=== PATIENT | male | born 1965 | race Two or more races ===

== ENCOUNTER 2020-09-11 09:22 | Inpatient (IN) | payer SELFPAY ==
[~2020-09-11] VITALS: Ht 162.6 cm; Wt 81.6 kg
--- NOTE | 2020-09-11 09:40 | NUR ---
ED Nurse Note: No available isolation room at this time. Charge nurse notified.
[2020-09-11] MEDS ORDERED: Azithromycin 500 MG in NS 275 ML IVPB ONE (10:00)
[2020-09-11] MEDS ORDERED: cefTRIAXone 1 GM in NS 55 ML IVPB ONE (10:00)
[2020-09-11] MEDS ORDERED: Acetaminophen 500mg (ES) tab ORAL ONE ×2 (10:00→13:00)
[2020-09-11] MEDS ORDERED: dexAMETHasone 10mg/ml Inj IV ONE (10:00)
[2020-09-11] MEDS ORDERED: NS 55 ML IV ONE (11:01)
--- NOTE | 2020-09-11 11:35 | NUR ---
ED Nurse Note: pt placed in isolation and meds given as noted. pt relates he feels short of breath with body aches. tachypnea noted. pt tolerates iv start and lab draw well. swabs sent as ordered. pt able to speak full sentences well skin hot and flushed to touch.
[2020-09-11 11:51] LABS: BASOPHILS % (AUTO) 0.5 % (0.0-2.0); HEMATOCRIT 43.3 % (42.0-52.0); HEMOGLOBIN 14.3 G/DL (14.2-18.0); LYMPHOCYTES % (AUTO) 13.1 % (20.0-45.0); MEAN CORPUSCULAR VOLUME 98 FL (80-99); MONOCYTES % (AUTO) 4.5 % (1.0-10.0); NEUTROPHILS % (AUTO) 81.9 % (45.0-75.0); PLATELET COUNT 199 K/UL (150-450); RED BLOOD COUNT 4.41 M/UL (4.70-6.10); RED CELL DISTRIBUTION WIDTH 10.7 % (11.6-14.8); WHITE BLOOD COUNT 6.4 K/UL (4.8-10.8)
[2020-09-11 12:07] LABS: ANION GAP 7 mmol/L (5-15); BLOOD UREA NITROGEN 15 mg/dL (7-18); CALCIUM 8.9 MG/DL (8.5-10.1); CARBON DIOXIDE 27 MMOL/L (21-32); CHLORIDE 100 MMOL/L (98-107); CREATININE 1.4 MG/DL (0.55-1.30); POTASSIUM 4.4 MMOL/L (3.5-5.1); SODIUM 134 MMOL/L (136-145)
--- NOTE | 2020-09-11 12:18 | Emergency Room Report ---
History of Present Illness General Chief Complaint: Upper Respiratory Illness Source: Patient Present Illness HPI 54-year-old male presents with cough and fever x5 days. Also endorses fatigue, nausea, and nonspecific abdominal discomfort Denies chest pain, hemoptysis, melena, hematochezia, hematuria, dysuria or other symptoms Is unsure of Covid exposures The patient's symptoms were gradual onset, severity was moderate, duration since 5 days. Quality: Dry cough Past medical history: Denies Past surgical history: Denies Smoking: Denies Alcohol use: Denies Drug use: Denies Review of systems: CONST: ++ fevers ++ chills, No night sweats PULMONARY: No productive cough, No shortness of breath CARDIAC: No chest pain, No palpitations GI: No vomiting, No diarrhea , No melena_or_BRBPR : No dysuria, No hematuria, No discharge NEURO: No new_focal_weakness_or_numbness, No confusion, No vision changes 14 point Review of Systems is otherwise negative except per HPI Physical Exam: GENERAL: Awake_alert_ nontoxic, no acute distress Spo2 88% on RA -normal. Febrile. Tachycardic EYES: Extraocular muscles are intact. Conjunctivae clear. Lids without swelling ENT: External nose and ear normal_in_appearance. Oropharynx clear. Head_atraumatic, Moist_oral_mucosa NECK: No JVD. No meningismus. No thyromegaly. Supple. Trachea midline RESP: Increased work of breathing. Symmetric rise. No stridor. Distant breath sounds bilaterally CARDIAC: Tachycardic and regular rhytm. No_significant pedal edema. ABDOMEN: Soft. Nondistended. Nontender_No_rebound_or_guarding. MSK: Normal muscle tone, without rigidity. Extremities without asymmetric deformity or swelling. SKIN: Warm and dry. No visible cyanosis or pallor NEUROLOGIC: Alert, oriented x3. Motor_and_sensation_grossly_intact. No truncal ataxia. Gait_normal Psych: Normal mood and affect, normal judgment and insight - COORDINATION OF CARE Case was discussed with: Patient , Patient's Physician Any labs and imaging that were ordered were interpreted as part of the medical decision making: Medical Decision Making/Plan: Differential includes COVID, pneumonia, bronchitis, CHF, pulmonary edema, pulmonary embolism, pleural effusion among others. Patient was initially febrile and tachycardic but well appearing. Patient declined sepsis NS 30cc/kg bolus given dx of COVID. CXR shows multifocal pneumonia seems to be consistent with pneumonia, rather than CHF. Labs show MERNA, dehydration, lipase is mildly elevated at 536. Abdominal exam is non tender. Doubt pseudocyst or gangrenous pancreatitis. Patient given Ceftriaxone / Azithromycin/Decadron. ++NS IVFs. Tylenol given for fever Symptoms are not likely to be pulmonary embolism, patient no significant PE risk factors, and has more likely alternate cause of symptoms. - CRITICAL CARE TIME - I spent 35 minutes of critical care time. This time excludes any separately billable procedures. Organ systems at risk include: Pulmonary / respiratory Treatments/Evaluations: Emergent and rapid respiratory assessment and management with continuous monitoring. Advanced airway equipment at the ready, while the patient's respiratory symptoms were stabilized. Given the patients presentation with pneumonia with hypoxic respiratory failure, there existed the potential for imminent deterioration in the patient's condition due to respiratory compromise. Organ systems at risk for failure without immediate intervention include pulmonary / respiratory. This time was spent reviewing the patients records, reviewing vital signs, reassessing the patients clinical status, discussing the case and care with staff and consultants, and performing high-complexity medical decision making. I considered the possibility of Bipap vs intubation , but at this time the patient is protecting their airway and maintaining their saturation on supplemental oxygen so will defer intubation at this time, although they will be closely monitored for any further deterioration. Allergies: Coded Allergies: No Known Allergies (Unverified , 09/11/20) COVID-19 Screening Contact w/high risk pt: No Experienced COVID-19 symptoms?: Yes COVID-19 Testing performed CHARACTER ARTIST: No Nursing Documentation-[facility] Past Medical History: No Stated History Physical Exam Vital Signs Date Time Temp Pulse Resp B/P (MAP) Pulse Ox O2 Delivery O2 Flow Rate FiO2 09/11/20 09:29 102.7 93 20 116/75 (89) 91 Room Air Sp02 EP Interpretation: reviewed, abnormal Medical Decision Making Diagnostic Impression: Primary Impression: COVID-19 Additional Impressions: MERNA (acute kidney injury) Hypoxemia Pancreatitis EKG Diagnostic Results PA Scribe Text 12-lead EKG (interpreted by me) Time: 1126 Indication: Rhythm analysis Tracing visualized and Interpreted by me. Rhythm: Normal sinus rhythm Rate: 81 bpm QTc: 439 Morphology: No_significant_ST_elevations_or_depressions, No STEMI Impression: Normal_sinus_rhythm_without_significant_abnormality Rhythm Strip Diag. Results Rhythm Strip Time: 12:59 EP Interpretation: yes Rate: 100 Rhythm: no PVC's, no ectopy Chest X-Ray Diagnostic Results Chest X-Ray Diagnostic Results : RUBI Scribsheri Text Chest X-Ray: Views: [ 1 ] view(s) Indication: Cough Findings: Normal heart size. Mediastinum normal. Multifocal pneumonia Impression: Multifocal pneumonia The X-ray(s) were independently viewed and interpreted contemporaneously Electronically signed by Wanda griffiths DO Reevaluation Time: 12:59 Last Vital Signs Date Time Temp Pulse Resp B/P (MAP) Pulse Ox O2 Delivery O2 Flow Rate FiO2 09/11/20 09:29 102.7 93 20 116/75 (89) 91 Room Air Status: improved Disposition: ADMITTED INPATIENT Admit Decision Time: 12:59 Condition: Stable Wanda Pugh D.O. Sep 11, 2020 12:18
[2020-09-11 12:20] LABS: ALANINE AMINOTRANSFERASE 65 U/L (12-78); ALBUMIN 3.2 G/DL (3.4-5.0); ALBUMIN/GLOBULIN RATIO 0.7 (1.0-2.7); ALKALINE PHOSPHATASE 89 U/L (46-116); ASPARTATE AMINO TRANSFERASE 90 U/L (15-37); BILIRUBIN,TOTAL 0.9 MG/DL (0.2-1.0); CREATINE KINASE 201 U/L (26-308); FERRITIN > 2000 NG/ML (8-388); LACTATE DEHYDROGENASE 441 U/L (81-234)
[2020-09-11 12:35] VITALS: BP 128/78
--- NOTE | 2020-09-11 13:35 | NUR ---
ED Nurse Note: pt doing well with stable vs on 2 L NC O2. no increased distress and resting comfortably. awaiting admission approval and room assignment.
--- NOTE | 2020-09-11 16:19 | NUR ---
ED Nurse Note: pt denies worsened symtpoms and resting well in room vss. awaiting room.
--- NOTE | 2020-09-11 16:20 | Diagnostic Imaging Report ---
Indication: Cough Technique: One view of the chest Comparison: none Findings: There are bilateral mostly peripheral streaky and patchy infiltrates in a peribronchovascular distribution. The heart size is normal. The pleural spaces are clear Impression: Bilateral infiltrates, consistent with multifocal pneumonia, likely viral
--- NOTE | 2020-09-11 17:05 | Cardiac Electrophysiology PN ---
Subjective Subjective [id number] Objective Last 24 Hour Vital Signs Date Time Temp Pulse Resp B/P (MAP) Pulse Ox O2 Delivery O2 Flow Rate FiO2 09/11/20 12:35 101.3 09/11/20 12:35 101.3 76 18 128/78 99 Nasal Cannula 2.0 09/11/20 12:30 93 20 Room Air 09/11/20 09:29 102.7 93 20 116/75 (89) 91 Room Air Laboratory Tests Test 09/11/20 09:54 09/11/20 11:00 Arterial Blood pH 7.480 (7.350-7.450) Arterial Blood Partial Pressure CO2 30.6 mmHg (35.0-45.0) L Arterial Blood Partial Pressure O2 60.1 mmHg (75.0-100.0) L Arterial Blood HCO3 22.3 mmol/L (22.0-26.0) Arterial Blood Oxygen Saturation 91.8 % (95-100) L Arterial Blood Base Excess -0.3 (-2-2) Juan Francisco Test Positive White Blood Count 6.4 K/UL (4.8-10.8) Red Blood Count 4.41 M/UL (4.70-6.10) L Hemoglobin 14.3 G/DL (14.2-18.0) Hematocrit 43.3 % (42.0-52.0) Mean Corpuscular Volume 98 FL (80-99) Mean Corpuscular Hemoglobin 32.4 PG (27.0-31.0) H Mean Corpuscular Hemoglobin Concent 33.0 G/DL (32.0-36.0) Red Cell Distribution Width 10.7 % (11.6-14.8) L Platelet Count 199 K/UL (150-450) Mean Platelet Volume 6.0 FL (6.5-10.1) L Neutrophils (%) (Auto) 81.9 % (45.0-75.0) H Lymphocytes (%) (Auto) 13.1 % (20.0-45.0) L Monocytes (%) (Auto) 4.5 % (1.0-10.0) Eosinophils (%) (Auto) 0.0 % (0.0-3.0) Basophils (%) (Auto) 0.5 % (0.0-2.0) Prothrombin Time 11.4 SEC (9.30-11.50) Prothromb Time International Ratio 1.0 (0.9-1.1) Activated Partial Thromboplast Time 28 SEC (23-33) Sodium Level 134 MMOL/L (136-145) L Potassium Level 4.4 MMOL/L (3.5-5.1) Chloride Level 100 MMOL/L (98-107) Carbon Dioxide Level 27 MMOL/L (21-32) Anion Gap 7 mmol/L (5-15) Blood Urea Nitrogen 15 mg/dL (7-18) Creatinine 1.4 MG/DL (0.55-1.30) H Estimat Glomerular Filtration Rate 53.0 mL/min (>60) Glucose Level 161 MG/DL (74-106) H Lactic Acid Level 1.40 mmol/L (0.4-2.0) Calcium Level 8.9 MG/DL (8.5-10.1) Ferritin > 2000 NG/ML (8-388) H Total Bilirubin 0.9 MG/DL (0.2-1.0) Aspartate Amino Transf (AST/SGOT) 90 U/L (15-37) H Alanine Aminotransferase (ALT/SGPT) 65 U/L (12-78) Alkaline Phosphatase 89 U/L (46-116) Lactate Dehydrogenase 441 U/L (81-234) H Total Creatine Kinase 201 U/L (26-308) Troponin I 0.000 ng/mL (0.000-0.056) C-Reactive Protein, Quantitative Pending Pro-B-Type Natriuretic Peptide 64 pg/mL (0-125) Total Protein 7.8 G/DL (6.4-8.2) Albumin 3.2 G/DL (3.4-5.0) L Globulin 4.6 g/dL Albumin/Globulin Ratio 0.7 (1.0-2.7) L Lipase 536 U/L (73-393) H Microbiology Date/Time Source Procedure Growth Status 09/11/20 11:15 Nasopharynx SARS-CoV-2 RdRp Gene Assay - Final Complete 09/11/20 11:00 Nasal Nares Left - Final Complete 09/11/20 11:00 Nasal Nares Left - Final Complete Thiago Villafana MD Sep 11, 2020 17:05
[2020-09-11 17:14] VITALS: BP 125/75
--- NOTE | 2020-09-11 17:14 | NUR ---
ED Nurse Note: dr gorman here to eval pt.pt without increased dyspnea. vss.
--- NOTE | 2020-09-11 17:45 | Consultation ---
DATE OF CONSULTATION: 09/11/2020 PULMONARY CONSULTATION HISTORY OF PRESENT ILLNESS: This is a 54-year-old male who came to the emergency room with cough and fever for the last 5 days. The patient denies any chest pain or hemoptysis. He is unsure about COVID exposures. He states he has been coughing and unwell for the last 5 days. PAST MEDICAL HISTORY: None. SURGERIES: None. SOCIAL HISTORY: No alcohol or tobacco usage. ALLERGIES: None reported. REVIEW OF SYSTEMS: Denies any headaches, hematemesis, melena, hematochezia, night sweats, or weight loss. PHYSICAL EXAMINATION: GENERAL: A 54-year-old male. HEENT: Unremarkable. CHEST: Clear breath sounds bilaterally. ABDOMEN: Soft. EXTREMITIES: There is no edema. NEUROLOGIC: Nonfocal. VITAL SIGNS: Blood pressure 120/70, heart rate 74, respirations 20, O2 sat oxygen, T-max 101.3. LABORATORY DATA: His COVID testing was positive by nasopharyngeal swab. X-ray chest was obtained, which shows bilateral patchy infiltrates. IMPRESSION: 1. COVID-19 pneumonia. 2. Hypoxemia. DISCUSSION: Admit to the hospital. We will start Decadron. We will start Lovenox. Provide oxygen. Defer to ID for remdesivir. We will follow carefully. Artur Johansen M.D. DR: ALEA JOB#: [id number] CC:
[2020-09-11 19:30] VITALS: BP 124/76
--- NOTE | 2020-09-11 19:44 | NUR ---
ED Nurse Note: Recived report from Deysi GARRISON
--- NOTE | 2020-09-11 20:15 | NUR ---
ED Nurse Note: Pt is resting comfortably talking to his family on the phone, ok'd to eat by ER MD, gave him a sandwhich, sent off urine to lab, Pt SPO2 99% on 2L NC, changed O2 tank. breathing is even and unlabored
--- NOTE | 2020-09-11 20:15 | Consultation ---
DATE OF CONSULTATION: 09/11/2020 CARDIOLOGY CONSULTATION CONSULTING PHYSICIAN: Thiago Villafana M.D. REFERRING PHYSICIAN: . REASON FOR CONSULTATION: Increasing shortness of breath in the patient with history of hypertension. HISTORY OF PRESENT ILLNESS: The patient is a 54-year-old gentleman with a history of hypertension, presented to the emergency room with cough and fever of 5 days duration. The patient also has abdominal discomfort and nausea and generalized fatigue. The patient did not have any chest pain and is not sure of COVID exposure. The patient was evaluated in the emergency room and his COVID was positive. Per my evaluation, the patient is still in the emergency room and requiring supplemental oxygen. REVIEW OF SYSTEMS: Negative other than what is mentioned in the history of present illness. PAST MEDICAL HISTORY: As mentioned above. FAMILY HISTORY: Noncontributory. SOCIAL HISTORY: He lives at home. Does not smoke or drink alcohol. PHYSICAL EXAMINATION: VITAL SIGNS: Show blood pressure of 128/78, pulse is 76, respirations 18, temperature is 102.7. HEAD AND NECK: Showed no JVD. LUNGS: Coarse rhonchi. CARDIOVASCULAR: Shows regular S1 and S2 with no gallop. ABDOMEN: Soft. EXTREMITIES: No pitting edema. LABORATORY DATA: Labs show white count of 6.4, hemoglobin of 14.7, hematocrit 43.3, and platelet count of 199. Sodium 134, potassium 4.4, BUN of 15, creatinine 1.4, and glucose of 161. First troponin is negative. LDH is 441. Albumin is 3.2, and BNP is 64. ASSESSMENT AND PLAN: 1. Shortness of breath. His BNP is within normal range and is most likely due to the patient's active COVID pneumonia especially in view of his fever of 102 and . We will get an echocardiogram and repeat cardiac enzymes as the patient is at risk for developing COVID myocarditis. 2. History of hypertension. Blood pressure currently is stable. 3. Mild renal failure with creatinine of 1.4. 4. Pancreatitis. Lipase elevated at 536. Lipase will be repeated in the morning. We will also check urine toxicology screen. Thank you very much for allowing me to participate in the care of this patient. Please do not hesitate to contact me for any questions regarding my evaluation. Thiago Villafana M.D. DR: AIDE JOB#: [id number] CC:
[2020-09-11 21:15] LABS: APPEARANCE,URINE CLEAR; BILIRUBIN, URINE NEGATIVE (NEGATIVE); GLUCOSE, URINE (UA) 3+ (NEGATIVE); KETONES,URINE 1+ (NEGATIVE); LEUKOCYTE ESTERASE ,URINE NEGATIVE (NEGATIVE); NITRITE,URINE NEGATIVE (NEGATIVE); PH,URINE 7 (4.5-8.0); PROTEIN,URINE 1+ (NEGATIVE); UROBILINOGEN,URINE 1 MG/DL (0.0-1.0)
[2020-09-11 21:29] LABS: COLOR,URINE YELLOW
--- NOTE | 2020-09-11 21:32 | NUR ---
ED Nurse Note: Gave report to Susanne RN
--- NOTE | 2020-09-11 21:49 | NUR ---
TRANSFER TO FLOOR: Patient transferred to as ordered, per ER MED. Report given to Susanne RN. Belongings and medications sent with Pt. Vitals table as documented. Pt is resting comfortably, breathing is even and unlabored. Addendum: 09/11/20 at 2151 by TDANCEY Room [facility]-
[2020-09-12] VITALS: BP 148/84
[2020-09-12] MEDS ORDERED: Albuterol 90mcg Inhaler 8gm INH SCH
--- NOTE | 2020-09-12 | NUR ---
NURSE NOTES: Patient was safely transferred from ER to via gurney, accompanied by transport. Belonging reviewed and signed with patient. Oriented patient to unit. Patient is awake, alert x4, on NC 2L, no acute distress noted. Denies pain. Skin assessment done. PIV intact and patent. Called and notified Dr. Wright of admission, received orders. Bed is locked and low, bed alarms active, side rails up x2 and call light is within reach. Will continue to monitor.
[2020-09-12 04:00] VITALS: BP 145/85
--- NOTE | 2020-09-12 06:16 | NUR ---
NURSE HAND-OFF: Important Events on Shift: Admission, patient stable on NC 2L, saturating at 96% Patient Status: Stable Diet: Regular Pending Orders: N.A Pending Results/Labs: CBC, CMP, MAG, PHOS Pending MD notification: N.A Latest Vital Signs: Temperature 98.1 , Pulse 60 , B/P 145 /85 , Respiratory Rate 16 , O2 SAT 97 , Nasal Cannula, O2 Flow Rate 2.0 . Vital Sign Comment: Stable Latest Lynne Fall Score: 20 Fall Risk: Low Risk Safety Measures: Call light Within Reach, Bed Alarm Zone 1, Side Rails Side Rails x2, Bed position Low and Locked. Fall Precautions: Patient Fall Education
[2020-09-12 06:43] LABS: BASOPHILS % (AUTO) 0.5 % (0.0-2.0); HEMATOCRIT 37.7 % (42.0-52.0); HEMOGLOBIN 13.4 G/DL (14.2-18.0); LYMPHOCYTES % (AUTO) 15.4 % (20.0-45.0); MEAN CORPUSCULAR VOLUME 94 FL (80-99); PLATELET COUNT 224 K/UL (150-450); RED BLOOD COUNT 4.03 M/UL (4.70-6.10); RED CELL DISTRIBUTION WIDTH 11.3 % (11.6-14.8); WHITE BLOOD COUNT 5.3 K/UL (4.8-10.8)
--- NOTE | 2020-09-12 07:15 | NUR ---
NURSE NOTES: Report received from Susanne RN, rounds made. Patient resting in semi-fowlers position in bed. AOx4 calm, on O2 2LNC, no SOB noted, has dry, light cough. LFA saline lock, intact, patent. Call light in reach, bed in lowest position,will continue to monitor.
--- NOTE | 2020-09-12 07:32 | NUR ---
HAND-OFF: Report given to BLADIMIR Harvey.
[2020-09-12 07:37] LABS: ALANINE AMINOTRANSFERASE 80 U/L (12-78); ALBUMIN 2.7 G/DL (3.4-5.0); ALBUMIN/GLOBULIN RATIO 0.6 (1.0-2.7); ALKALINE PHOSPHATASE 82 U/L (46-116); ANION GAP 8 mmol/L (5-15); ASPARTATE AMINO TRANSFERASE 75 U/L (15-37); BILIRUBIN,TOTAL 0.5 MG/DL (0.2-1.0); BLOOD UREA NITROGEN 21 mg/dL (7-18); CALCIUM 8.8 MG/DL (8.5-10.1); CARBON DIOXIDE 26 MMOL/L (21-32); CHLORIDE 104 MMOL/L (98-107); POTASSIUM 4.2 MMOL/L (3.5-5.1); SODIUM 137 MMOL/L (136-145)
[2020-09-12 07:51] LABS: PHOSPHORUS 2.4 MG/DL (2.5-4.9)
[2020-09-12 08:00] VITALS: BP 127/78
[2020-09-12] MEDS: Albuterol 90mcg Inhaler 8gm INH SCH ×4 (08:00→20:59)
--- NOTE | 2020-09-12 08:40 | History & Physical ---
History of Present Illness General Reason for Hospitalization: Upper Respiratory Illness Present Illness HPI 54-year-old male presents with cough and fever x5 days. Also endorses fatigue, nausea, and nonspecific abdominal discomfort Denies chest pain, hemoptysis, melena, hematochezia, hematuria, dysuria or other symptoms Is unsure of Covid exposures The patient's symptoms were gradual onset, severity was moderate, duration since 5 days. Quality: Dry cough Allergies: Coded Allergies: No Known Allergies (Unverified , 09/11/20) COVID-19 Screening Contact w/high risk pt: No Experienced COVID-19 symptoms?: Yes Coronavirus symptoms experienc: Fever (T>100.4F or >38C), Chills, Fatigue, Shortness of Breath, Cough Patient History Healthcare decision maker Resuscitation status Advanced Directive on File Review of Systems Review of Symptoms General ROS: no weight loss or fever Psychological ROS: no depression or mood changes, no memory loss Ophthalmic ROS: no visual changes or eye irritation ENT ROS: no nasal congestion, hearing loss, dizziness Allergy and Immunology ROS: no allergic symptoms or urticaria Hematological and Lymphatic ROS: no swollen glands, unusual bleeding or bruising Endocrine ROS: no polyuria, polydipsia, weight changes, temperature intolerance Respiratory ROS: no cough, shortness of breath, or wheezing Cardiovascular ROS: no chest pain or dyspnea on exertion Gastrointestinal ROS: denies abdominal pain, bright red blood in stool. Musculoskeletal ROS: no myalgias or arthralgias Neurological ROS: no TIA or stroke symptoms Dermatological ROS: no new or changing skin lesions, rashes or pruritis Physical Exam Physical Exam General appearance: alert, cooperative, no distress, appears stated age Head: Normocephalic, without obvious abnormality, atraumatic Eyes: conjunctivae/corneas clear. PERRL, EOM's intact. Fundi benign Throat: Lips, mucosa, and tongue normal. Teeth and gums normal Neck: supple, symmetrical, trachea midline, no adenopathy, thyroid: not enlarged, symmetric, no tenderness/mass/nodules, no carotid bruit and no JVD Lungs: clear to auscultation bilaterally Heart: regular rate and rhythm, S1, S2 normal, no murmur, click, rub or gallop Abdomen: soft, non-tender. Bowel sounds normal. No masses, no organomegaly Extremities: extremities normal, atraumatic, no cyanosis or edema Pulses: 2+ and symmetric Skin: Skin color, texture, turgor normal. No rashes or lesions Neurologic: Grossly normal Last 24 Hour Vital Signs Date Time Temp Pulse Resp B/P (MAP) Pulse Ox O2 Delivery O2 Flow Rate FiO2 09/12/20 04:00 98.1 60 16 145/85 (105) 97 09/12/20 00:06 Nasal Cannula 2.0 09/12/20 00:00 97.7 66 17 148/84 (105) 96 09/11/20 21:35 98.6 62 26 125/86 98 Nasal Cannula 2.0 09/11/20 19:30 97.8 56 30 124/76 99 Nasal Cannula 2.0 09/11/20 17:14 97.1 58 22 125/75 95 Nasal Cannula 2.0 09/11/20 14:14 97.1 09/11/20 12:35 101.3 09/11/20 12:35 101.3 76 18 128/78 99 Nasal Cannula 2.0 09/11/20 12:30 93 20 Room Air 09/11/20 09:29 102.7 93 20 116/75 (89) 91 Room Air Intake and Output 09/11/20 09/12/20 19:00 07:00 Intake Total 1330 ml Output Total 700 ml Balance 1330 ml -700 ml Intake IV Total 1330 ml Output Urine Total 700 ml Laboratory Tests Test 09/11/20 09:54 09/11/20 11:00 09/11/20 20:00 09/12/20 05:30 Arterial Blood pH 7.480 (7.350-7.450) Arterial Blood Partial Pressure CO2 30.6 mmHg (35.0-45.0) L Arterial Blood Partial Pressure O2 60.1 mmHg (75.0-100.0) L Arterial Blood HCO3 22.3 mmol/L (22.0-26.0) Arterial Blood Oxygen Saturation 91.8 % (95-100) L Arterial Blood Base Excess -0.3 (-2-2) [place] Test Positive White Blood Count 6.4 K/UL (4.8-10.8) 5.3 K/UL (4.8-10.8) Red Blood Count 4.41 M/UL (4.70-6.10) L 4.03 M/UL (4.70-6.10) L Hemoglobin 14.3 G/DL (14.2-18.0) 13.4 G/DL (14.2-18.0) L Hematocrit 43.3 % (42.0-52.0) 37.7 % (42.0-52.0) L Mean Corpuscular Volume 98 FL (80-99) 94 FL (80-99) Mean Corpuscular Hemoglobin 32.4 PG (27.0-31.0) H 33.1 PG (27.0-31.0) H Mean Corpuscular Hemoglobin Concent 33.0 G/DL (32.0-36.0) 35.4 G/DL (32.0-36.0) Red Cell Distribution Width 10.7 % (11.6-14.8) L 11.3 % (11.6-14.8) L Platelet Count 199 K/UL (150-450) 224 K/UL (150-450) Mean Platelet Volume 6.0 FL (6.5-10.1) L 6.4 FL (6.5-10.1) L Neutrophils (%) (Auto) 81.9 % (45.0-75.0) H 77.0 % (45.0-75.0) H Lymphocytes (%) (Auto) 13.1 % (20.0-45.0) L 15.4 % (20.0-45.0) L Monocytes (%) (Auto) 4.5 % (1.0-10.0) 7.0 % (1.0-10.0) Eosinophils (%) (Auto) 0.0 % (0.0-3.0) 0.0 % (0.0-3.0) Basophils (%) (Auto) 0.5 % (0.0-2.0) 0.5 % (0.0-2.0) Prothrombin Time 11.4 SEC (9.30-11.50) Prothromb Time International Ratio 1.0 (0.9-1.1) Activated Partial Thromboplast Time 28 SEC (23-33) Sodium Level 134 MMOL/L (136-145) L 137 MMOL/L (136-145) Potassium Level 4.4 MMOL/L (3.5-5.1) 4.2 MMOL/L (3.5-5.1) Chloride Level 100 MMOL/L (98-107) 104 MMOL/L (98-107) Carbon Dioxide Level 27 MMOL/L (21-32) 26 MMOL/L (21-32) Anion Gap 7 mmol/L (5-15) 8 mmol/L (5-15) Blood Urea Nitrogen 15 mg/dL (7-18) 21 mg/dL (7-18) H Creatinine 1.4 MG/DL (0.55-1.30) H 1.0 MG/DL (0.55-1.30) Estimat Glomerular Filtration Rate 53.0 mL/min (>60) > 60 mL/min (>60) Glucose Level 161 MG/DL (74-106) H 235 MG/DL (74-106) H Lactic Acid Level 1.40 mmol/L (0.4-2.0) Calcium Level 8.9 MG/DL (8.5-10.1) 8.8 MG/DL (8.5-10.1) Ferritin > 2000 NG/ML (8-388) H Total Bilirubin 0.9 MG/DL (0.2-1.0) 0.5 MG/DL (0.2-1.0) Aspartate Amino Transf (AST/SGOT) 90 U/L (15-37) H 75 U/L (15-37) H Alanine Aminotransferase (ALT/SGPT) 65 U/L (12-78) 80 U/L (12-78) H Alkaline Phosphatase 89 U/L (46-116) 82 U/L (46-116) Lactate Dehydrogenase 441 U/L (81-234) H Total Creatine Kinase 201 U/L (26-308) Troponin I 0.000 ng/mL (0.000-0.056) 0.000 ng/mL (0.000-0.056) C-Reactive Protein, Quantitative 98.2 mg/L (<5) H Pro-B-Type Natriuretic Peptide 64 pg/mL (0-125) 303 pg/mL (0-125) H Total Protein 7.8 G/DL (6.4-8.2) 7.0 G/DL (6.4-8.2) Albumin 3.2 G/DL (3.4-5.0) L 2.7 G/DL (3.4-5.0) L Globulin 4.6 g/dL 4.3 g/dL Albumin/Globulin Ratio 0.7 (1.0-2.7) L 0.6 (1.0-2.7) L Lipase 536 U/L (73-393) H Urine Color Yellow Urine Appearance Clear Urine pH 7 (4.5-8.0) Urine Specific [place] 1.005 (1.005-1.035) Urine Protein 1+ (NEGATIVE) H Urine Glucose (UA) 3+ (NEGATIVE) H Urine Ketones 1+ (NEGATIVE) H Urine Blood Negative (NEGATIVE) Urine Nitrite Negative (NEGATIVE) Urine Bilirubin Negative (NEGATIVE) Urine Urobilinogen 1 MG/DL (0.0-1.0) H Urine Leukocyte Esterase Negative (NEGATIVE) Urine RBC 0-2 /HPF (0 - 0) H Urine WBC 0-2 /HPF (0 - 0) Urine Squamous Epithelial Cells None /LPF (NONE/OCC) Urine Bacteria Occasional /HPF (NONE) Phosphorus Level 2.4 MG/DL (2.5-4.9) L Magnesium Level 2.2 MG/DL (1.8-2.4) Thyroid Stimulating Hormone (TSH) 0.360 uiU/mL (0.358-3.740) Microbiology Date/Time Source Procedure Growth Status 09/11/20 11:15 Nasopharynx SARS-CoV-2 RdRp Gene Assay - Final Complete 09/11/20 11:00 Nasal Nares Left - Final Complete 09/11/20 11:00 Nasal Nares Left - Final Complete Height (Feet): 5 Height (Inches): 4.00 Weight (Pounds): 180 Medications Current Medications Medications (Trade) Dose Ordered Sig/Alex Route PRN Reason Start Time Stop Time Status Last Admin Dose Admin Acetaminophen (Tylenol) 650 mg Q6H PRN ORAL Temp >100.5 09/12/20 00:00 10/12/20 00:00 Albuterol Sulfate (Proventil MDI) 2 puff Q4H INH 09/12/20 08:00 12/11/20 00:00 Azithromycin 500 mg/Dextrose 275 ml @ 275 mls/hr Q24HRS IV 09/12/20 10:00 09/18/20 10:59 Ceftriaxone Sodium 1 gm/ Dextrose 55 ml @ 110 mls/hr Q24H IVPB 09/12/20 11:00 09/19/20 10:59 Dexamethasone Sodium Phosphate (Decadron 10mg/ ml Inj) 6 mg DAILY IV 09/12/20 09:00 12/11/20 08:59 Heparin Sodium (Porcine) (Heparin 5000 units/ml) 5,000 units EVERY 12 HOURS SUBQ 09/12/20 09:00 10/27/20 08:59 Assessment/Plan Diagnosis [place] I: #COVID pneumonia #hypoxemic resp failure #sepsis - admit inpatient - ID eval - pulm eval - dexamethsone - defer remdesevir to ID - breathing tx - supplemental O2 - DCT ppx - monitor labs - avoid nephrotoxins [facility] Hospital declaration I spent 70 minutes on this patient's case, and 35 minutes was dedicated to counseling and/or care coordination. MIPS ([employer]it-based Incentive Payment System) Applicable CPT: 86701, 80996 CHECK ALL THAT ARE MET: Measure #5 (CHF): All ages. Prescribe FORD/ARB upon discharge for patients with left ventricular systolic dysfunction. If not, the reason is clearly documented in the medical chart. Measure #8 (CHF): All ages. Prescribe a beta vidal upon discharge for patients with left ventricular systolic dysfunction. If not, the reason is clearly documented in the medical chart. Measure #47 Advance care plan or surrogate decision maker documented in the medical record. Measure #130 The provider has documented, updated, or reviewed the patients current medication list and has documented it in the patients note. Measure #374 (All): Send report to referring provider. Measure #407(Sepsis due to MSSA bacteremia): Age 18+ Patient treated with a beta-lactam antibiotic (Nafcillin, Oxacillin or Cefazolin) as definitive therapy. MEDICAL COMPLEXITY High complexity medical decision making (need 2/3 categories) Problem - need 4 points Acute/new problem with new plan for workup (4 points, 1 max) Acute/new problem without additional workup (3 points, 1 max) Unstable chronic problem actively being managed (2 point each, 2 max) Stable chronic problem actively being managed (1 point each, 2 max) Self-limited/transient process (constipation, muscle ache, etc) (1 point each, 2 max) Data - need 4 points Reviewed labs/imaging studies (1 points, 2 max) Independent review of imaging (EKG, xrays, etc) (2 points, 2 max) Discussed case with consult/other MD/RN (2 points, 2 max) High Risk - qualify if have one of the following: Severe exacerbation of acute problem, acute mental status change, IV narcotics, monitoring drug levels (vancomycin, INR, tacrolimus etc) Yrn Wright M.D. Sep 12, 2020 08:40
[2020-09-12] MEDS: Heparin 5000 units/ml inj SUBQ SCH ×2 (08:49→20:58)
[2020-09-12] MEDS: dexAMETHasone 10mg/ml Inj IV SCH (08:50)
[2020-09-12] MEDS: Azithromycin 500 MG in D5W 275 ML IV SCH (08:52)
--- NOTE | 2020-09-12 10:46 | Pulmonology Progress Note ---
Subjective Interval Events: none major reported per nursing Constitutional: Reports: no symptoms; Denies: fever HEENT: Repors: no symptoms Respiratory: Reports: dry cough, shortness of breath Cardiovascular: Reports: no symptoms Gastrointestinal/Abdominal: Reports: no symptoms Allergies: Coded Allergies: No Known Allergies (Unverified , 09/11/20) Objective Last 24 Hour Vital Signs Date Time Temp Pulse Resp B/P (MAP) Pulse Ox O2 Delivery O2 Flow Rate FiO2 09/12/20 08:00 98.2 80 18 127/78 (94) 96 09/12/20 04:00 98.1 60 16 145/85 (105) 97 09/12/20 00:06 Nasal Cannula 2.0 09/12/20 00:00 97.7 66 17 148/84 (105) 96 09/11/20 21:35 98.6 62 26 125/86 98 Nasal Cannula 2.0 09/11/20 19:30 97.8 56 30 124/76 99 Nasal Cannula 2.0 09/11/20 17:14 97.1 58 22 125/75 95 Nasal Cannula 2.0 09/11/20 14:14 97.1 09/11/20 12:35 101.3 09/11/20 12:35 101.3 76 18 128/78 99 Nasal Cannula 2.0 09/11/20 12:30 93 20 Room Air Intake and Output 09/11/20 09/12/20 19:00 07:00 Intake Total 1330 ml Output Total 700 ml Balance 1330 ml -700 ml Intake IV Total 1330 ml Output Urine Total 700 ml Objective 09/12 saturating at 97% on 4L NC General Appearance: no acute distress HEENT: normocephalic, atraumatic Respiratory: lungs clear Cardiovascular: normal rate, regular rhythm Abdomen: soft, non tender Microbiology Date/Time Source Procedure Growth Status 09/11/20 11:15 Nasopharynx SARS-CoV-2 RdRp Gene Assay - Final Complete 09/11/20 11:00 Nasal Nares Left - Final Complete 09/11/20 11:00 Nasal Nares Left - Final Complete Laboratory Tests 09/11/20 11:00: White Blood Count 6.4, Red Blood Count 4.41L, Hemoglobin 14.3, Hematocrit 43.3, Mean Corpuscular Volume 98, Mean Corpuscular Hemoglobin 32.4H, Mean Corpuscular Hemoglobin Concent 33.0, Red Cell Distribution Width 10.7L, Platelet Count 199, Mean Platelet Volume 6.0L, Neutrophils (%) (Auto) 81.9H, Lymphocytes (%) (Auto) 13.1L, Monocytes (%) (Auto) 4.5, Eosinophils (%) (Auto) 0.0, Basophils (%) (Auto) 0.5, Prothrombin Time 11.4, Prothromb Time International Ratio 1.0, Activated Partial Thromboplast Time 28, Sodium Level 134L, Potassium Level 4.4, Chloride Level 100, Carbon Dioxide Level 27, Anion Gap 7, Blood Urea Nitrogen 15, Creatinine 1.4H, Estimat Glomerular Filtration Rate 53.0, Glucose Level 161H , Lactic Acid Level 1.40, Calcium Level 8.9, Ferritin > 2000H, Total Bilirubin 0.9, Aspartate Amino Transf (AST/SGOT) 90H, Alanine Aminotransferase (ALT/SGPT) 65, Alkaline Phosphatase 89, Lactate Dehydrogenase 441H, Total Creatine Kinase 201, Troponin I 0.000, C-Reactive Protein, Quantitative 98.2H, Pro-B-Type Natriuretic Peptide 64, Total Protein 7.8, Albumin 3.2L, Globulin 4.6, Albumin/Globulin Ratio 0.7L, Lipase 536H 09/11/20 20:00: Urine Color Yellow, Urine Appearance Clear, Urine pH 7, Urine Specific [place] 1.005, Urine Protein 1+H, Urine Glucose (UA) 3+H, Urine Ketones 1+H, Urine Blood Negative, Urine Nitrite Negative, Urine Bilirubin Negative, Urine Urobilinogen 1H, Urine Leukocyte Esterase Negative, Urine RBC 0-2H, Urine WBC 0-2, Urine Squamous Epithelial Cells None, Urine Bacteria Occasional 09/12/20 05:30: White Blood Count 5.3, Red Blood Count 4.03L, Hemoglobin 13.4L, Hematocrit 37.7L , Mean Corpuscular Volume 94, Mean Corpuscular Hemoglobin 33.1H, Mean Corpuscular Hemoglobin Concent 35.4, Red Cell Distribution Width 11.3L, Platelet Count 224, Mean Platelet Volume 6.4L, Neutrophils (%) (Auto) 77.0H, Lymphocytes (%) (Auto) 15.4L, Monocytes (%) (Auto) 7.0, Eosinophils (%) (Auto) 0.0, Basophils (%) (Auto) 0.5, Sodium Level 137, Potassium Level 4.2, Chloride Level 104, Carbon Dioxide Level 26, Anion Gap 8, Blood Urea Nitrogen 21H, Creatinine 1.0, Estimat Glomerular Filtration Rate > 60, Glucose Level 235H, Calcium Level 8.8, Total Bilirubin 0.5, Aspartate Amino Transf (AST/SGOT) 75H, Alanine Aminotransferase (ALT/SGPT) 80H, Alkaline Phosphatase 82, Troponin I 0.000, Pro-B-Type Natriuretic Peptide 303H, Total Protein 7.0, Albumin 2.7L, Globulin 4.3, Albumin/Globulin Ratio 0.6L, Phosphorus Level 2.4L, Magnesium Level 2.2, Thyroid Stimulating Hormone (TSH) 0.360 Current Medications Medications (Trade) Dose Ordered Sig/Alex Route PRN Reason Start Time Stop Time Status Last Admin Dose Admin Acetaminophen (Tylenol) 650 mg Q6H PRN ORAL Temp >100.5 09/12/20 00:00 10/12/20 00:00 Albuterol Sulfate (Proventil MDI) 2 puff Q4H INH 09/12/20 08:00 12/11/20 00:00 Azithromycin 500 mg/Dextrose 275 ml @ 275 mls/hr Q24HRS IV 09/12/20 10:00 09/18/20 10:59 09/12/20 08:52 Ceftriaxone Sodium 1 gm/ Dextrose 55 ml @ 110 mls/hr Q24H IVPB 09/12/20 11:00 09/19/20 10:59 Dexamethasone Sodium Phosphate (Decadron 10mg/ ml Inj) 6 mg DAILY IV 09/12/20 09:00 12/11/20 08:59 09/12/20 08:50 Heparin Sodium (Porcine) (Heparin 5000 units/ml) 5,000 units EVERY 12 HOURS SUBQ 09/12/20 09:00 10/27/20 08:59 09/12/20 08:49 Assessment/Plan Assessment/Plan 1. COVID-19 pneumonia. - on Decadron (09/12-) - on azithromycin and ceftriaxone - Defer use of remdesivir to ID 2. Hypoxemia. - monitor SaO2 and provide supplemental oxygen - Continue nasal o2; 2L/min 3. DVT ppx - On Lovenox We will follow carefully. The care for this patient was discussed with my supervising physician Time spent for this case was approximately 31 minutes Reymundo Musa Sep 12, 2020 10:46 Artur Johansen MD Sep 12, 2020 14:27
[2020-09-12 12:00] VITALS: BP 154/79
[2020-09-12] MEDS: cefTRIAXone 1 GM in D5W 55 ML IVPB SCH (12:14)
--- NOTE | 2020-09-12 12:38 | NUR ---
CASE MANAGEMENT:INITIAL REVIEW 54 YR OLD MALE PRESENTED TO ED FROM HOME CC;UPPER RESPIRATORY ILLNESS SI; COVID POSITIVE. HYPOXIA.PANCREATITIS. MERNA. 102.7 93 20 128/78 95% 2L NC CR 1.4 GLU 161 FERRITIN >2000 AST 90 LDH 441 C-RP 98.2 ALB 3.2 LIPASE 536 UA+ PROTEIN, GLUCOSE, KETONES, RBC COVID RAPID ~ POSITIVE CXR ~ Bilateral infiltrates, consistent with multifocal pneumonia, likely viral IS;ZITHROMAX IV DECADRON IV IVF NS BOLUS ROCEPHIN IV ROCEPHIN ADMITTED TO MED SURG MED SURG STATUS DCP;PENDING HOSPITAL STAY Addendum: 09/12/20 at 1300 by DANNIELLE MONACO LVN CM INTERQUAL CRITERIA MET
--- NOTE | 2020-09-12 15:45 | NUR ---
NURSE NOTES: Dr. Panchal notified of BP trending high, 154/79, and no BP meds on eMAR. No further orders at this time.
[2020-09-12 16:00] VITALS: BP 154/82
--- NOTE | 2020-09-12 16:41 | Cardiac Electrophysiology PN ---
Assessment/Plan Assessment/Plan 1. Shortness of breath. His BNP is within normal range and is most likely due to the patient's active COVID pneumonia especially in view of his fever of 102. Ruled out for [place] Echocardiogram showed EF 65% 2. History of hypertension. Blood pressure currently is stable. 3. Mild renal failure with creatinine of 1.4. 4. Pancreatitis. Lipase elevated at 536. Subjective Subjective BP mildly elevated on 2 liter NC Objective Last 24 Hour Vital Signs Date Time Temp Pulse Resp B/P (MAP) Pulse Ox O2 Delivery O2 Flow Rate FiO2 09/12/20 12:00 97.9 60 18 154/79 (104) 94 09/12/20 09:00 Nasal Cannula 2.0 09/12/20 08:00 98.2 80 18 127/78 (94) 96 09/12/20 04:00 98.1 60 16 145/85 (105) 97 09/12/20 00:06 Nasal Cannula 2.0 09/12/20 00:00 97.7 66 17 148/84 (105) 96 09/11/20 21:35 98.6 62 26 125/86 98 Nasal Cannula 2.0 09/11/20 19:30 97.8 56 30 124/76 99 Nasal Cannula 2.0 09/11/20 17:14 97.1 58 22 125/75 95 Nasal Cannula 2.0 Intake and Output 09/11/20 09/12/20 19:00 07:00 Intake Total 1330 ml Output Total 700 ml Balance 1330 ml -700 ml Intake IV Total 1330 ml Output Urine Total 700 ml Laboratory Tests Test 09/11/20 20:00 09/12/20 05:30 Urine Color Yellow Urine Appearance Clear Urine pH 7 (4.5-8.0) Urine Specific [place] 1.005 (1.005-1.035) Urine Protein 1+ (NEGATIVE) H Urine Glucose (UA) 3+ (NEGATIVE) H Urine Ketones 1+ (NEGATIVE) H Urine Blood Negative (NEGATIVE) Urine Nitrite Negative (NEGATIVE) Urine Bilirubin Negative (NEGATIVE) Urine Urobilinogen 1 MG/DL (0.0-1.0) H Urine Leukocyte Esterase Negative (NEGATIVE) Urine RBC 0-2 /HPF (0 - 0) H Urine WBC 0-2 /HPF (0 - 0) Urine Squamous Epithelial Cells None /LPF (NONE/OCC) Urine Bacteria Occasional /HPF (NONE) White Blood Count 5.3 K/UL (4.8-10.8) Red Blood Count 4.03 M/UL (4.70-6.10) L Hemoglobin 13.4 G/DL (14.2-18.0) L Hematocrit 37.7 % (42.0-52.0) L Mean Corpuscular Volume 94 FL (80-99) Mean Corpuscular Hemoglobin 33.1 PG (27.0-31.0) H Mean Corpuscular Hemoglobin Concent 35.4 G/DL (32.0-36.0) Red Cell Distribution Width 11.3 % (11.6-14.8) L Platelet Count 224 K/UL (150-450) Mean Platelet Volume 6.4 FL (6.5-10.1) L Neutrophils (%) (Auto) 77.0 % (45.0-75.0) H Lymphocytes (%) (Auto) 15.4 % (20.0-45.0) L Monocytes (%) (Auto) 7.0 % (1.0-10.0) Eosinophils (%) (Auto) 0.0 % (0.0-3.0) Basophils (%) (Auto) 0.5 % (0.0-2.0) Sodium Level 137 MMOL/L (136-145) Potassium Level 4.2 MMOL/L (3.5-5.1) Chloride Level 104 MMOL/L (98-107) Carbon Dioxide Level 26 MMOL/L (21-32) Anion Gap 8 mmol/L (5-15) Blood Urea Nitrogen 21 mg/dL (7-18) H Creatinine 1.0 MG/DL (0.55-1.30) Estimat Glomerular Filtration Rate > 60 mL/min (>60) Glucose Level 235 MG/DL (74-106) H Calcium Level 8.8 MG/DL (8.5-10.1) Phosphorus Level 2.4 MG/DL (2.5-4.9) L Magnesium Level 2.2 MG/DL (1.8-2.4) Total Bilirubin 0.5 MG/DL (0.2-1.0) Aspartate Amino Transf (AST/SGOT) 75 U/L (15-37) H Alanine Aminotransferase (ALT/SGPT) 80 U/L (12-78) H Alkaline Phosphatase 82 U/L (46-116) Troponin I 0.000 ng/mL (0.000-0.056) Pro-B-Type Natriuretic Peptide 303 pg/mL (0-125) H Total Protein 7.0 G/DL (6.4-8.2) Albumin 2.7 G/DL (3.4-5.0) L Globulin 4.3 g/dL Albumin/Globulin Ratio 0.6 (1.0-2.7) L Thyroid Stimulating Hormone (TSH) 0.360 uiU/mL (0.358-3.740) Microbiology Date/Time Source Procedure Growth Status 09/11/20 11:15 Nasopharynx SARS-CoV-2 RdRp Gene Assay - Final Complete 09/11/20 11:00 Nasal Nares Left - Final Complete 09/11/20 11:00 Nasal Nares Left - Final Complete Objective HEAD AND NECK: Showed no JVD. LUNGS: Coarse rhonchi. CARDIOVASCULAR: Shows regular S1 and S2 with no gallop. ABDOMEN: Soft. EXTREMITIES: No pitting edema. Thiago Villafana MD Sep 12, 2020 16:41
--- NOTE | 2020-09-12 18:48 | Infectious Diseases Prog Note ---
Assessment/Plan Assessment/Plan Full consult dictated: A) 1) covid-19 infection, pna, hypoxia, ? cap, fevers 2) HTN 3) pancreatitis P) 1) dexamethasone, remdesivir 2) azithromycin and ceftriaxone 3) monitor labs, chest x-ray 4) thank you Subjective Allergies: Coded Allergies: No Known Allergies (Unverified , 09/11/20) Objective Last 24 Hour Vital Signs Date Time Temp Pulse Resp B/P (MAP) Pulse Ox O2 Delivery O2 Flow Rate FiO2 09/12/20 16:00 98.2 60 18 154/82 (106) 92 09/12/20 12:00 97.9 60 18 154/79 (104) 94 09/12/20 09:00 Nasal Cannula 2.0 09/12/20 08:00 98.2 80 18 127/78 (94) 96 09/12/20 04:00 98.1 60 16 145/85 (105) 97 09/12/20 00:06 Nasal Cannula 2.0 09/12/20 00:00 97.7 66 17 148/84 (105) 96 09/11/20 21:35 98.6 62 26 125/86 98 Nasal Cannula 2.0 09/11/20 19:30 97.8 56 30 124/76 99 Nasal Cannula 2.0 Height (Feet): 5 Height (Inches): 4.00 Weight (Pounds): 180 Microbiology Date/Time Source Procedure Growth Status 09/11/20 11:15 Nasopharynx SARS-CoV-2 RdRp Gene Assay - Final Complete 09/11/20 11:00 Nasal Nares Left - Final Complete 09/11/20 11:00 Nasal Nares Left - Final Complete Laboratory Tests Test 09/11/20 20:00 09/12/20 05:30 Urine Color Yellow Urine Appearance Clear Urine pH 7 (4.5-8.0) Urine Specific [place] 1.005 (1.005-1.035) Urine Protein 1+ (NEGATIVE) H Urine Glucose (UA) 3+ (NEGATIVE) H Urine Ketones 1+ (NEGATIVE) H Urine Blood Negative (NEGATIVE) Urine Nitrite Negative (NEGATIVE) Urine Bilirubin Negative (NEGATIVE) Urine Urobilinogen 1 MG/DL (0.0-1.0) H Urine Leukocyte Esterase Negative (NEGATIVE) Urine RBC 0-2 /HPF (0 - 0) H Urine WBC 0-2 /HPF (0 - 0) Urine Squamous Epithelial Cells None /LPF (NONE/OCC) Urine Bacteria Occasional /HPF (NONE) White Blood Count 5.3 K/UL (4.8-10.8) Red Blood Count 4.03 M/UL (4.70-6.10) L Hemoglobin 13.4 G/DL (14.2-18.0) L Hematocrit 37.7 % (42.0-52.0) L Mean Corpuscular Volume 94 FL (80-99) Mean Corpuscular Hemoglobin 33.1 PG (27.0-31.0) H Mean Corpuscular Hemoglobin Concent 35.4 G/DL (32.0-36.0) Red Cell Distribution Width 11.3 % (11.6-14.8) L Platelet Count 224 K/UL (150-450) Mean Platelet Volume 6.4 FL (6.5-10.1) L Neutrophils (%) (Auto) 77.0 % (45.0-75.0) H Lymphocytes (%) (Auto) 15.4 % (20.0-45.0) L Monocytes (%) (Auto) 7.0 % (1.0-10.0) Eosinophils (%) (Auto) 0.0 % (0.0-3.0) Basophils (%) (Auto) 0.5 % (0.0-2.0) Sodium Level 137 MMOL/L (136-145) Potassium Level 4.2 MMOL/L (3.5-5.1) Chloride Level 104 MMOL/L (98-107) Carbon Dioxide Level 26 MMOL/L (21-32) Anion Gap 8 mmol/L (5-15) Blood Urea Nitrogen 21 mg/dL (7-18) H Creatinine 1.0 MG/DL (0.55-1.30) Estimat Glomerular Filtration Rate > 60 mL/min (>60) Glucose Level 235 MG/DL (74-106) H Calcium Level 8.8 MG/DL (8.5-10.1) Phosphorus Level 2.4 MG/DL (2.5-4.9) L Magnesium Level 2.2 MG/DL (1.8-2.4) Total Bilirubin 0.5 MG/DL (0.2-1.0) Aspartate Amino Transf (AST/SGOT) 75 U/L (15-37) H Alanine Aminotransferase (ALT/SGPT) 80 U/L (12-78) H Alkaline Phosphatase 82 U/L (46-116) Troponin I 0.000 ng/mL (0.000-0.056) Pro-B-Type Natriuretic Peptide 303 pg/mL (0-125) H Total Protein 7.0 G/DL (6.4-8.2) Albumin 2.7 G/DL (3.4-5.0) L Globulin 4.3 g/dL Albumin/Globulin Ratio 0.6 (1.0-2.7) L Thyroid Stimulating Hormone (TSH) 0.360 uiU/mL (0.358-3.740) Current Medications Medications (Trade) Dose Ordered Sig/Alex Route PRN Reason Start Time Stop Time Status Last Admin Dose Admin Acetaminophen (Tylenol) 650 mg Q6H PRN ORAL Temp >100.5 09/12/20 00:00 10/12/20 00:00 Albuterol Sulfate (Proventil MDI) 2 puff Q4H INH 09/12/20 08:00 12/11/20 00:00 09/12/20 17:05 Azithromycin 500 mg/Dextrose 275 ml @ 275 mls/hr Q24HRS IV 09/12/20 10:00 09/18/20 10:59 09/12/20 08:52 Ceftriaxone Sodium 1 gm/ Dextrose 55 ml @ 110 mls/hr Q24H IVPB 09/12/20 11:00 09/19/20 10:59 09/12/20 12:14 Dexamethasone Sodium Phosphate (Decadron 10mg/ ml Inj) 6 mg DAILY IV 09/12/20 09:00 09/20/20 12:00 09/12/20 08:50 Heparin Sodium (Porcine) (Heparin 5000 units/ml) 5,000 units EVERY 12 HOURS SUBQ 09/12/20 09:00 10/27/20 08:59 09/12/20 08:49 Remdesivir 100 mg/ Sodium Chloride 250 ml @ 250 mls/hr Q24H IV 09/13/20 22:00 09/16/20 22:59 Remdesivir 200 mg/ Sodium Chloride 250 ml @ 125 mls/hr ONCE IV 09/12/20 22:00 09/12/20 23:59 John Cody MD Sep 12, 2020 18:48
--- NOTE | 2020-09-12 18:55 | NUR ---
NURSE HAND-OFF: Important Events on Shift:BP trending high 154/79 (Dr. Panchal aware, no orders), 2D echo done 09/12 (65%), Troponin negative (09/12) Patient Status: stable Diet: regular Pending Orders: Remdesivir loading dose tonight 2200, labs 09/15 Pending Results/Labs:CMP 09/15 Pending MD notification:none Latest Vital Signs: Temperature 98.2 , Pulse 60 , B/P 154 /82 , Respiratory Rate 18 , O2 SAT 92 , Nasal Cannula, O2 Flow Rate 2.0 . Vital Sign Comment: none Latest Lynne Fall Score: 20 Fall Risk: Low Risk Safety Measures: Call light Within Reach, Bed Alarm Zone 1, Side Rails Side Rails x2, Bed position Low and Locked. Fall Precautions: Yellow Socks Patient Fall Education Report given to Kiarra GARRISON.
--- NOTE | 2020-09-12 19:52 | NUR ---
NURSE NOTES: Received report from BLADIMIR Harvey. AAO x 4, on NC2l, ambulatory. IV site intact and patent. No acute distress noted. Bed locked, lowest position, alarm on, side rails up, call light within reach. Will continue to monitor.
[2020-09-12 20:00] VITALS: BP 130/80
--- NOTE | 2020-09-12 20:14 | Consultation ---
DATE OF CONSULTATION: 09/12/2020 INFECTIOUS DISEASE CONSULTATION CONSULTING PHYSICIAN: John Cody MD. ATTENDING PHYSICIAN: Yrn Wright MD. REFERRING PHYSICIAN: Yrn Wright MD. REASON FOR CONSULTATION: COVID-19 infection, fevers, pneumonia. CHIEF COMPLAINT: The patient's chief complaint coming in the hospital is pancreatitis, COVID-19 infection, hypoxia, and pneumonia. HISTORY OF PRESENT ILLNESS: This is a 54-year-old male, who comes to [facility] with hypoxia. The patient was positive for elevated lipase, possible pancreatitis. The patient was noted to have COVID-19 infection, fevers, and pneumonia. Infectious Disease consultation is requested. He is currently on Rocephin, azithromycin, and dexamethasone, I am going to add remdesivir. REVIEW OF SYSTEMS: CONSTITUTIONAL: Main issue is the fevers, chills, and hypoxia, maybe some abdominal discomfort. CARDIAC: No chest pain. PULMONARY: Mild shortness of breath. GASTROINTESTINAL: Some abdominal discomfort. No nausea, vomiting, or diarrhea. GENITOURINARY: No urinary symptoms. PAST MEDICAL HISTORY: The patient has a past medical history of hypertension and pancreatitis. ALLERGIES: The patient has no known drug allergies. SOCIAL HISTORY: Negative for smoking, alcohol or IV drug abuse. FAMILY HISTORY: Noncontributory. MEDICATIONS: Upon reviewing the MAR, the patient is on following medications. He is on remdesivir, azithromycin, Rocephin, and dexamethasone; p.r.n. medication, heparin. Outside medications noted and reconciliated. PHYSICAL EXAMINATION: VITAL SIGNS: Temperature 98.2, pulse rate 60, respiratory rate 18, blood pressure 154/82. Saturation 92% on 2 liters. T-max 102.7. GENERAL: Alert, responsive, oriented. HEAD AND NECK: Oral exam, no thrush. Eye exam, no icterus. Normocephalic. CARDIAC: Regular. No murmur or gallop. LUNGS: Bilateral rhonchi and rales. ABDOMEN: Soft. Positive bowel sounds. Nontender. MUSCULOSKELETAL: No septic arthritis. Legs are without cellulitis. PERIPHERAL VASCULAR: No gangrene. NEUROLOGIC: Intact. LABORATORY DATA: Creatinine 1.0. LFTs were noted, mildly elevated ALT of 80. White count 5.3, hemoglobin 13.4. UA negative. Cultures are pending. COVID nasopharyngeal testing was positive. Molecular COVID testing positive. Influenza screen was negative. IMAGING: Chest x-ray showed bilateral infiltrates consistent with multifocal pneumonia. ASSESSMENT AND PLAN: 1. The patient has COVID-19 infection with pneumonia and hypoxia. The patient is on 2 liters O2 saturation of 92%. At this time, I agree with dexamethasone and I will add remdesivir because he has low-flow O2. Also continue Rocephin and azithromycin for community-acquired pneumonia. Continue dexamethasone and remdesivir for COVID-19 infection, pneumonia, and hypoxia. Continue Rocephin and azithromycin for community-acquired pneumonia. Monitor hypoxia. Continue COVID isolation. 2. Pancreatitis. Lipase is elevated at 536. Treatment per primary care team. 3. Hypertension. 4. No allergies. 5. Social history is negative. 6. Family history is noncontributory. 7. MAR is noted. 8. Case was discussed with RN. 9. Discussed with pharmacy and communicated with Dr. Wright. John Cody M.D. DR: SUMA JOB#: [id number] CC:
[2020-09-12] MEDS ORDERED: Loading Dose:Remdesivir 200mg/NS 210ml IV SCH ×2 (22:00)
[2020-09-13] VITALS (7 sets, daily range): BP systolic 138–165; BP diastolic 66–97
[2020-09-13] MEDS: Albuterol 90mcg Inhaler 8gm INH SCH ×8 (00:04→23:45)
--- NOTE | 2020-09-13 06:04 | NUR ---
NURSE HAND-OFF: Important Events on Shift:HTN Patient Status: Diet: reg Pending Orders: Pending Results/Labs:am labs Pending MD notification: Latest Vital Signs: Temperature 96.8 , Pulse 54 , B/P 152 /66 , Respiratory Rate 18 , O2 SAT 98 , Nasal Cannula, O2 Flow Rate 2.0 . Vital Sign Comment: [] Latest Lynne Fall Score: 20 Fall Risk: Low Risk Safety Measures: Call light Within Reach, Bed Alarm Zone 1, Side Rails Side Rails x2, Bed position Low and Locked. Fall Precautions: Pablito Lowe Patient Fall Education Addendum: 09/13/20 at 0716 by STEFF MEZA RN RN HAND-OFF: Report given to
[2020-09-13 06:21] LABS: BASOPHILS % (AUTO) 0.6 % (0.0-2.0); HEMATOCRIT 36.1 % (42.0-52.0); HEMOGLOBIN 12.8 G/DL (14.2-18.0); LYMPHOCYTES % (AUTO) 12.2 % (20.0-45.0); MEAN CORPUSCULAR VOLUME 93 FL (80-99); NEUTROPHILS % (AUTO) 81.1 % (45.0-75.0); PLATELET COUNT 248 K/UL (150-450); RED BLOOD COUNT 3.88 M/UL (4.70-6.10); RED CELL DISTRIBUTION WIDTH 12.8 % (11.6-14.8); WHITE BLOOD COUNT 9.9 K/UL (4.8-10.8)
[2020-09-13 06:26] LABS: ALANINE AMINOTRANSFERASE 77 U/L (12-78); ALBUMIN 2.7 G/DL (3.4-5.0); ALBUMIN/GLOBULIN RATIO 0.7 (1.0-2.7); ALKALINE PHOSPHATASE 78 U/L (46-116); ANION GAP 7 mmol/L (5-15); ASPARTATE AMINO TRANSFERASE 48 U/L (15-37); BILIRUBIN,TOTAL 0.4 MG/DL (0.2-1.0); BLOOD UREA NITROGEN 22 mg/dL (7-18); CALCIUM 8.9 MG/DL (8.5-10.1); CARBON DIOXIDE 24 MMOL/L (21-32); CHLORIDE 108 MMOL/L (98-107); PHOSPHORUS 3.7 MG/DL (2.5-4.9); POTASSIUM 4.5 MMOL/L (3.5-5.1); SODIUM 139 MMOL/L (136-145)
--- NOTE | 2020-09-13 07:11 | NUR ---
NURSE NOTES: Report received from Kiarra GARRISON, rounds made. Patient resting in semi-fowlers position in bed. AOx4 calm, on O2 2LNC, no SOB noted, has dry, weak cough. LFA saline lock, intact, patent. Call light in reach, bed in lowest position,will continue to monitor.
[2020-09-13] MEDS: Heparin 5000 units/ml inj SUBQ SCH ×2 (09:23→20:54)
[2020-09-13] MEDS: dexAMETHasone 10mg/ml Inj IV SCH (09:23)
[2020-09-13] MEDS: Azithromycin 500 MG in D5W 275 ML IV SCH (09:29)
--- NOTE | 2020-09-13 10:05 | Pulmonology Progress Note ---
Subjective ROS Limited/Unobtainable: No Interval Events: none major reported per nursing Constitutional: Reports: no symptoms; Denies: fever HEENT: Repors: no symptoms Respiratory: Reports: dry cough, shortness of breath Cardiovascular: Reports: no symptoms Gastrointestinal/Abdominal: Reports: no symptoms Allergies: Coded Allergies: No Known Allergies (Unverified , 09/11/20) Objective Last 24 Hour Vital Signs Date Time Temp Pulse Resp B/P (MAP) Pulse Ox O2 Delivery O2 Flow Rate FiO2 09/13/20 04:00 96.8 54 18 152/66 (94) 98 09/13/20 00:00 98.1 58 18 150/82 (104) 97 09/12/20 21:00 Nasal Cannula 2.0 09/12/20 20:00 97.1 61 20 130/80 (97) 93 09/12/20 16:00 98.2 60 18 154/82 (106) 92 09/12/20 12:00 97.9 60 18 154/79 (104) 94 Intake and Output 09/12/20 09/13/20 19:00 07:00 Intake Total 1000 ml Output Total 750 ml 850 ml Balance 250 ml -850 ml Intake Oral 1000 ml Output Urine Total 750 ml 850 ml # Voids 2 Objective 09/13 saturating at 95 on 2L NC 09/12 saturating at 97% on 4L NC General Appearance: no acute distress HEENT: normocephalic, atraumatic Respiratory: lungs clear Cardiovascular: normal rate, regular rhythm Abdomen: soft, non tender Microbiology Date/Time Source Procedure Growth Status 09/11/20 20:00 Urine,Clean Catch Urine Culture - Final Mixed Gram Positive Organism Complete 09/11/20 11:15 Nasopharynx SARS-CoV-2 RdRp Gene Assay - Final Complete 09/11/20 11:00 Nasal Nares Left - Final Complete 09/11/20 11:00 Nasal Nares Left - Final Complete 09/11/20 11:00 Blood Blood Culture - Preliminary NO GROWTH AFTER 24 HOURS Resulted 09/11/20 11:00 Blood Blood Culture - Preliminary NO GROWTH AFTER 24 HOURS Resulted Laboratory Tests 09/13/20 04:20: White Blood Count 9.9#, Red Blood Count 3.88L, Hemoglobin 12.8L, Hematocrit 36.1L, Mean Corpuscular Volume 93, Mean Corpuscular Hemoglobin 33.0H, Mean Corpuscular Hemoglobin Concent 35.5, Red Cell Distribution Width 12.8, Platelet Count 248, Mean Platelet Volume 6.4L, Neutrophils (%) (Auto) 81.1H, Lymphocytes (%) (Auto) 12.2L, Monocytes (%) (Auto) 6.0, Eosinophils (%) (Auto) 0.0, Basophils (%) (Auto) 0.6, Sodium Level 139, Potassium Level 4.5, Chloride Level 108H, Carbon Dioxide Level 24, Anion Gap 7, Blood Urea Nitrogen 22H, Creatinine 1.0, Estimat Glomerular Filtration Rate > 60, Glucose Level 294H, Calcium Level 8.9, Phosphorus Level 3.7, Magnesium Level 2.3, Total Bilirubin 0.4, Direct Bilirubin 0.2, Aspartate Amino Transf (AST/SGOT) 48H, Alanine Aminotransferase (ALT/SGPT) 77, Alkaline Phosphatase 78, Total Protein 6.8, Albumin 2.7L, Globulin 4.1, Albumin/Globulin Ratio 0.7L Current Medications Medications (Trade) Dose Ordered Sig/Alex Route PRN Reason Start Time Stop Time Status Last Admin Dose Admin Acetaminophen (Tylenol) 650 mg Q6H PRN ORAL Temp >100.5 09/12/20 00:00 10/12/20 00:00 Albuterol Sulfate (Proventil MDI) 2 puff Q4H INH 09/12/20 08:00 12/11/20 00:00 09/13/20 09:24 Azithromycin 500 mg/Dextrose 275 ml @ 275 mls/hr Q24HRS IV 09/12/20 10:00 09/18/20 10:59 09/13/20 09:29 Ceftriaxone Sodium 1 gm/ Dextrose 55 ml @ 110 mls/hr Q24H IVPB 09/12/20 11:00 09/19/20 10:59 09/12/20 12:14 Dexamethasone Sodium Phosphate (Decadron 10mg/ ml Inj) 6 mg DAILY IV 09/12/20 09:00 09/20/20 12:00 09/13/20 09:23 Heparin Sodium (Porcine) (Heparin 5000 units/ml) 5,000 units EVERY 12 HOURS SUBQ 09/12/20 09:00 10/27/20 08:59 09/13/20 09:23 Remdesivir 100 mg/ Sodium Chloride 250 ml @ 250 mls/hr Q24H IV 09/13/20 22:00 09/16/20 22:59 Assessment/Plan Assessment/Plan 1. COVID-19 pneumonia. - on Decadron (09/12-) - on azithromycin and ceftriaxone - now on remdesivir per ID (09/13-) 2. Hypoxemia., likely secondary to #1 - monitor SaO2 and provide supplemental oxygen - Continue nasal o2; 2L/min - 2D echo LV EF= 65% 3. HTN - needs better control We will follow carefully. The care for this patient was discussed with my supervising physician Time spent for this case was approximately 31 minutes Reymundo Musa Sep 13, 2020 10:05
[2020-09-13] MEDS: cefTRIAXone 1 GM in D5W 55 ML IVPB SCH (11:45)
--- NOTE | 2020-09-13 12:00 | NUR ---
NURSE NOTES: Oxygen decreased from 2L (97% at 1030) to 1.5L (95-96% rechecked at 1200), will continue to monitor.
--- NOTE | 2020-09-13 12:59 | Cardiology Report ---
APPROVED REPORT EKG Measurement Heart [id number] <Conclusion> Normal sinus rhythm Normal ECG
--- NOTE | 2020-09-13 12:59 | Cardiology Report ---
APPROVED REPORT EKG Measurement Heart [id number] QTT0 <Conclusion> No QRS complexes found, no ECG analysis possible
--- NOTE | 2020-09-13 14:19 | NUR ---
CASE MANAGEMENT:REVIEW SI;COVID POSITIVE. HYPOXIA.PANCREATITIS. MERNA. 96.8 52 18 152/66 95% 2L NC BUN 22 BG 294 AST 48 ALB 2.7 IS;REMDESIVIR IV Q24 ROCEPHIN IV QD ZITHROMAX IV QD DECADRON IV QD HEPARIN SQ Q12 PROVENTIL INH Q4 MED SURG STATUS DCP;FROM HOME
--- NOTE | 2020-09-13 15:25 | Internal Med Progress Note ---
Subjective Physician Name Yrn Wright Attending Physician Yrn Wright M.D. Current Medications Medications (Trade) Dose Ordered Sig/Alex Route PRN Reason Start Time Stop Time Status Last Admin Dose Admin Acetaminophen (Tylenol) 650 mg Q6H PRN ORAL Temp >100.5 09/12/20 00:00 10/12/20 00:00 Albuterol Sulfate (Proventil MDI) 2 puff Q4H INH 09/12/20 08:00 12/11/20 00:00 09/13/20 12:52 Azithromycin 500 mg/Dextrose 275 ml @ 275 mls/hr Q24HRS IV 09/12/20 10:00 09/18/20 10:59 09/13/20 09:29 Ceftriaxone Sodium 1 gm/ Dextrose 55 ml @ 110 mls/hr Q24H IVPB 09/12/20 11:00 09/19/20 10:59 09/13/20 11:45 Dexamethasone Sodium Phosphate (Decadron 10mg/ ml Inj) 6 mg DAILY IV 09/12/20 09:00 09/20/20 12:00 09/13/20 09:23 Heparin Sodium (Porcine) (Heparin 5000 units/ml) 5,000 units EVERY 12 HOURS SUBQ 09/12/20 09:00 10/27/20 08:59 09/13/20 09:23 Remdesivir 100 mg/ Sodium Chloride 250 ml @ 250 mls/hr Q24H IV 09/13/20 22:00 09/16/20 22:59 Allergies: Coded Allergies: No Known Allergies (Unverified , 09/11/20) ROS Limited/Unobtainable: No Constitutional: Reports: weakness HEENT: Denies: no symptoms, eye pain, blurred vision, tearing, double vision, ear pain, ear discharge, nose pain, nose congestion, throat pain, throat swelling, mouth pain, mouth swelling, other Cardiovascular: Denies: no symptoms, chest pain, edema, irregular heart rate, lightheadedness, palpitations, syncope, other Respiratory: Denies: no symptoms, cough, orthopnea, shortness of breath, SOB with excertion, SOB at rest, sputum, stridor, wheezing, other Gastrointestinal/Abdominal: Denies: no symptoms, abdomen distended, abdominal pain, black stools, tarry stools, blood in stool, constipated, diarrhea, difficulty swallowing, nausea, poor appetite, poor fluid intake, rectal bleeding, vomiting, other Genitourinary: Denies: no symptoms, burning, discharge, frequency, flank pain, hematuria, incontinence, pain, urgency, other Neurologic/Psychiatric: Denies: no symptoms, anxiety, depressed, emotional problems, headache, numbness, paresthesia, pre-existing deficit, seizure, tingling, tremors, weakness, other All Systems: reviewed and negative except above Objective Last Vital Signs Date Time Temp Pulse Resp B/P (MAP) Pulse Ox O2 Delivery O2 Flow Rate FiO2 09/13/20 12:00 97.8 52 18 144/73 (96) 95 09/13/20 09:00 Nasal Cannula 2.0 Laboratory Tests Test 09/13/20 04:20 White Blood Count 9.9 K/UL (4.8-10.8) # Red Blood Count 3.88 M/UL (4.70-6.10) L Hemoglobin 12.8 G/DL (14.2-18.0) L Hematocrit 36.1 % (42.0-52.0) L Mean Corpuscular Volume 93 FL (80-99) Mean Corpuscular Hemoglobin 33.0 PG (27.0-31.0) H Mean Corpuscular Hemoglobin Concent 35.5 G/DL (32.0-36.0) Red Cell Distribution Width 12.8 % (11.6-14.8) Platelet Count 248 K/UL (150-450) Mean Platelet Volume 6.4 FL (6.5-10.1) L Neutrophils (%) (Auto) 81.1 % (45.0-75.0) H Lymphocytes (%) (Auto) 12.2 % (20.0-45.0) L Monocytes (%) (Auto) 6.0 % (1.0-10.0) Eosinophils (%) (Auto) 0.0 % (0.0-3.0) Basophils (%) (Auto) 0.6 % (0.0-2.0) Sodium Level 139 MMOL/L (136-145) Potassium Level 4.5 MMOL/L (3.5-5.1) Chloride Level 108 MMOL/L (98-107) H Carbon Dioxide Level 24 MMOL/L (21-32) Anion Gap 7 mmol/L (5-15) Blood Urea Nitrogen 22 mg/dL (7-18) H Creatinine 1.0 MG/DL (0.55-1.30) Estimat Glomerular Filtration Rate > 60 mL/min (>60) Glucose Level 294 MG/DL (74-106) H Calcium Level 8.9 MG/DL (8.5-10.1) Phosphorus Level 3.7 MG/DL (2.5-4.9) Magnesium Level 2.3 MG/DL (1.8-2.4) Total Bilirubin 0.4 MG/DL (0.2-1.0) Direct Bilirubin 0.2 MG/DL (0.0-0.3) Aspartate Amino Transf (AST/SGOT) 48 U/L (15-37) H Alanine Aminotransferase (ALT/SGPT) 77 U/L (12-78) Alkaline Phosphatase 78 U/L (46-116) Total Protein 6.8 G/DL (6.4-8.2) Albumin 2.7 G/DL (3.4-5.0) L Globulin 4.1 g/dL Albumin/Globulin Ratio 0.7 (1.0-2.7) L Microbiology Date/Time Source Procedure Growth Status 09/11/20 20:00 Urine,Clean Catch Urine Culture - Final Mixed Gram Positive Organism Complete 09/11/20 11:15 Nasopharynx SARS-CoV-2 RdRp Gene Assay - Final Complete 09/11/20 11:00 Nasal Nares Left - Final Complete 09/11/20 11:00 Nasal Nares Left - Final Complete 09/11/20 11:00 Blood Blood Culture - Preliminary NO GROWTH AFTER 24 HOURS Resulted 09/11/20 11:00 Blood Blood Culture - Preliminary NO GROWTH AFTER 24 HOURS Resulted Intake and Output 09/12/20 09/13/20 19:00 07:00 Intake Total 1000 ml Output Total 750 ml 850 ml Balance 250 ml -850 ml Intake Oral 1000 ml Output Urine Total 750 ml 850 ml # Voids 2 Objective General appearance: alert, cooperative, no distress, appears stated age Head: Normocephalic, without obvious abnormality, atraumatic Eyes: conjunctivae/corneas clear. PERRL, EOM's intact. Fundi benign Throat: Lips, mucosa, and tongue normal. Teeth and gums normal Neck: supple, symmetrical, trachea midline, no adenopathy, thyroid: not enlarged, symmetric, no tenderness/mass/nodules, no carotid bruit and no JVD Lungs: clear to auscultation bilaterally Heart: regular rate and rhythm, S1, S2 normal, no murmur, click, rub or gallop Abdomen: soft, non-tender. Bowel sounds normal. No masses, no organomegaly Extremities: extremities normal, atraumatic, no cyanosis or edema Pulses: 2+ and symmetric Skin: Skin color, texture, turgor normal. No rashes or lesions Neurologic: Grossly normal Assessment/Plan Assessment/Plan #COVID pneumonia #hypoxemic resp failure #sepsis - admit inpatient - ID eval - pulm eval - dexamethsone - defer remdesevir to ID - breathing tx - supplemental O2 - DCT ppx - monitor labs - avoid nephrotoxins Yrn Wright M.D. Sep 13, 2020 15:25
--- NOTE | 2020-09-13 15:37 | Cardiac Electrophysiology PN ---
Assessment/Plan Assessment/Plan 1. Shortness of breath due to Covid PNA. His BNP is within normal range Ruled out for CO Echocardiogram showed EF 65% 2. History of hypertension. Blood pressure currently is stable. 3. Mild renal failure with creatinine of 1.4. 4. Pancreatitis. Lipase elevated at 536. Subjective Subjective BP better on 1.5 Liter NC. In Covid isolation Objective Last 24 Hour Vital Signs Date Time Temp Pulse Resp B/P (MAP) Pulse Ox O2 Delivery O2 Flow Rate FiO2 09/13/20 12:00 97.8 52 18 144/73 (96) 95 09/13/20 09:00 Nasal Cannula 2.0 09/13/20 08:00 97.5 58 18 138/76 (96) 97 09/13/20 04:00 96.8 54 18 152/66 (94) 98 09/13/20 00:00 98.1 58 18 150/82 (104) 97 09/12/20 21:00 Nasal Cannula 2.0 09/12/20 20:00 97.1 61 20 130/80 (97) 93 09/12/20 16:00 98.2 60 18 154/82 (106) 92 Intake and Output 09/12/20 09/13/20 19:00 07:00 Intake Total 1000 ml Output Total 750 ml 850 ml Balance 250 ml -850 ml Intake Oral 1000 ml Output Urine Total 750 ml 850 ml # Voids 2 Laboratory Tests Test 09/13/20 04:20 White Blood Count 9.9 K/UL (4.8-10.8) # Red Blood Count 3.88 M/UL (4.70-6.10) L Hemoglobin 12.8 G/DL (14.2-18.0) L Hematocrit 36.1 % (42.0-52.0) L Mean Corpuscular Volume 93 FL (80-99) Mean Corpuscular Hemoglobin 33.0 PG (27.0-31.0) H Mean Corpuscular Hemoglobin Concent 35.5 G/DL (32.0-36.0) Red Cell Distribution Width 12.8 % (11.6-14.8) Platelet Count 248 K/UL (150-450) Mean Platelet Volume 6.4 FL (6.5-10.1) L Neutrophils (%) (Auto) 81.1 % (45.0-75.0) H Lymphocytes (%) (Auto) 12.2 % (20.0-45.0) L Monocytes (%) (Auto) 6.0 % (1.0-10.0) Eosinophils (%) (Auto) 0.0 % (0.0-3.0) Basophils (%) (Auto) 0.6 % (0.0-2.0) Sodium Level 139 MMOL/L (136-145) Potassium Level 4.5 MMOL/L (3.5-5.1) Chloride Level 108 MMOL/L (98-107) H Carbon Dioxide Level 24 MMOL/L (21-32) Anion Gap 7 mmol/L (5-15) Blood Urea Nitrogen 22 mg/dL (7-18) H Creatinine 1.0 MG/DL (0.55-1.30) Estimat Glomerular Filtration Rate > 60 mL/min (>60) Glucose Level 294 MG/DL (74-106) H Calcium Level 8.9 MG/DL (8.5-10.1) Phosphorus Level 3.7 MG/DL (2.5-4.9) Magnesium Level 2.3 MG/DL (1.8-2.4) Total Bilirubin 0.4 MG/DL (0.2-1.0) Direct Bilirubin 0.2 MG/DL (0.0-0.3) Aspartate Amino Transf (AST/SGOT) 48 U/L (15-37) H Alanine Aminotransferase (ALT/SGPT) 77 U/L (12-78) Alkaline Phosphatase 78 U/L (46-116) Total Protein 6.8 G/DL (6.4-8.2) Albumin 2.7 G/DL (3.4-5.0) L Globulin 4.1 g/dL Albumin/Globulin Ratio 0.7 (1.0-2.7) L Microbiology Date/Time Source Procedure Growth Status 09/11/20 20:00 Urine,Clean Catch Urine Culture - Final Mixed Gram Positive Organism Complete 09/11/20 11:15 Nasopharynx SARS-CoV-2 RdRp Gene Assay - Final Complete 09/11/20 11:00 Nasal Nares Left - Final Complete 09/11/20 11:00 Nasal Nares Left - Final Complete 09/11/20 11:00 Blood Blood Culture - Preliminary NO GROWTH AFTER 24 HOURS Resulted 09/11/20 11:00 Blood Blood Culture - Preliminary NO GROWTH AFTER 24 HOURS Resulted Objective HEAD AND NECK: Showed no JVD. LUNGS: Coarse rhonchi. CARDIOVASCULAR: Shows regular S1 and S2 with no gallop. ABDOMEN: Soft. EXTREMITIES: No pitting edema. Thiago Villafana MD Sep 13, 2020 15:36
--- NOTE | 2020-09-13 18:57 | NUR ---
NURSE NOTES: Dr. Panchal notified of BP165/97 HR 52, reviewed eMAR, patient on Albuterol inhaler Q4hr, no further orders. Rechecked patient 2 hours later, BP 151/74 HR 57, Dr. Panchal notified, no further orders.
--- NOTE | 2020-09-13 19:02 | NUR ---
NURSE HAND-OFF: Important Events on Shift:BP 165/97, rechecked 151/74 (Dr. Panchal notified), IV restart at 1000, O2 1.5L Patient Status: Stable Diet: regular Pending Orders: none Pending Results/Labs:none Pending MD notification:none Latest Vital Signs: Temperature 97.9 , Pulse 57 , B/P 151 /74 , Respiratory Rate 18 , O2 SAT 97 , Nasal Cannula, O2 Flow Rate 2.0 . Vital Sign Comment: none Latest Lynne Fall Score: 20 Fall Risk: Low Risk Safety Measures: Call light Within Reach, Bed Alarm Zone 1, Side Rails Side Rails x2, Bed position Low and Locked. Fall Precautions: Yellow Socks Patient Fall Education Report given to Kiarra GARRISON.
--- NOTE | 2020-09-13 19:15 | NUR ---
NURSE NOTES: Received report from BLADIMIR Harvey. AAO x 4, on NC1.5l, ambulatory. IV site intact and patent. Denies pain or discomfort. No acute distress noted. Bed locked, lowest position, alarm on, side rails up, call light within reach. Will continue to monitor.
[2020-09-13] MEDS: Maintenance Dose:Remdesivir 100mg/NS 230ml x 4 Doses IV SCH ×2 (21:02)
[2020-09-13] MEDS: guaiFENesin 100mg/5ml Liq ud ORAL PRN (23:39)
[2020-09-13] MEDS ORDERED: guaiFENesin 100mg/5ml Liq ud ORAL PRN (23:45)
[2020-09-14] VITALS: BP 165/87
[2020-09-14 04:00] VITALS: BP 142/84
[2020-09-14] MEDS: Albuterol 90mcg Inhaler 8gm INH SCH ×5 (04:07→21:04)
[2020-09-14 07:54] LABS: BASOPHILS % (AUTO) 0.5 % (0.0-2.0); HEMATOCRIT 35.5 % (42.0-52.0); LYMPHOCYTES % (AUTO) 13.5 % (20.0-45.0); MEAN CORPUSCULAR VOLUME 94 FL (80-99); MONOCYTES % (AUTO) 5.5 % (1.0-10.0); NEUTROPHILS % (AUTO) 80.5 % (45.0-75.0); PLATELET COUNT 265 K/UL (150-450); RED BLOOD COUNT 3.78 M/UL (4.70-6.10); WHITE BLOOD COUNT 9.9 K/UL (4.8-10.8)
[2020-09-14 08:00] VITALS: BP 121/71
--- NOTE | 2020-09-14 08:00 | NUR ---
NURSE NOTES: Received report from Kiarra GARRISON. Patient is awake and oriented, in no distress, denies SOB, on room air. Ambulatory. IV intact. Updated on plan of care. Side rails upx2, bed low and locked, call light within reach.
[2020-09-14 08:08] LABS: ALANINE AMINOTRANSFERASE 98 U/L (12-78); ALBUMIN 2.8 G/DL (3.4-5.0); ALBUMIN/GLOBULIN RATIO 0.7 (1.0-2.7); ALKALINE PHOSPHATASE 79 U/L (46-116); ANION GAP 11 mmol/L (5-15); ASPARTATE AMINO TRANSFERASE 36 U/L (15-37); BILIRUBIN,TOTAL 0.5 MG/DL (0.2-1.0); BLOOD UREA NITROGEN 22 mg/dL (7-18); CALCIUM 8.8 MG/DL (8.5-10.1); CARBON DIOXIDE 23 MMOL/L (21-32); CHLORIDE 105 MMOL/L (98-107); PHOSPHORUS 3.7 MG/DL (2.5-4.9); POTASSIUM 4.3 MMOL/L (3.5-5.1); SODIUM 139 MMOL/L (136-145)
[2020-09-14] MEDS: dexAMETHasone 10mg/ml Inj IV SCH (09:29)
[2020-09-14] MEDS: Heparin 5000 units/ml inj SUBQ SCH ×2 (09:31→21:06)
[2020-09-14] MEDS: Azithromycin 500 MG in D5W 275 ML IV SCH (10:35)
--- NOTE | 2020-09-14 10:46 | NUR ---
NURSE NOTES: Report given to Nehemias GARRISON.
[2020-09-14] MEDS: guaiFENesin 100mg/5ml Liq ud ORAL PRN ×2 (10:54→21:04)
[2020-09-14] MEDS: cefTRIAXone 1 GM in D5W 55 ML IVPB SCH (11:26)
[2020-09-14 12:00] VITALS: BP 115/79
--- NOTE | 2020-09-14 12:31 | Pulmonology Progress Note ---
Subjective ROS Limited/Unobtainable: No Interval Events: none major reported per nursing Constitutional: Reports: no symptoms; Denies: fever HEENT: Repors: no symptoms Respiratory: Reports: dry cough, shortness of breath Cardiovascular: Reports: no symptoms Gastrointestinal/Abdominal: Reports: no symptoms Allergies: Coded Allergies: No Known Allergies (Unverified , 09/11/20) Objective Last 24 Hour Vital Signs Date Time Temp Pulse Resp B/P (MAP) Pulse Ox O2 Delivery O2 Flow Rate FiO2 09/14/20 09:00 Room Air 09/14/20 08:00 98.1 58 18 121/71 (88) 95 09/14/20 04:00 97.0 50 20 142/84 (103) 97 09/14/20 00:00 96.9 48 20 165/87 (113) 97 09/13/20 20:42 Nasal Cannula 1.5 09/13/20 20:00 98.1 60 20 146/79 (101) 98 09/13/20 18:27 97.9 57 18 151/74 (99) 97 09/13/20 16:00 97.2 52 18 165/97 (119) 98 Intake and Output 09/13/20 09/14/20 19:00 07:00 Intake Total 1000 ml Output Total 2175 ml 900 ml Balance -1175 ml -900 ml Intake Oral 1000 ml Output Urine Total 2175 ml 900 ml # Voids 6 General Appearance: no acute distress HEENT: normocephalic, atraumatic Respiratory: lungs clear Cardiovascular: normal rate, regular rhythm Abdomen: soft, non tender Microbiology Date/Time Source Procedure Growth Status 09/11/20 20:00 Urine,Clean Catch Urine Culture - Final Mixed Gram Positive Organism Complete Laboratory Tests 09/14/20 04:20: White Blood Count 9.9, Red Blood Count 3.78L, Hemoglobin 13.0L, Hematocrit 35.5L , Mean Corpuscular Volume 94, Mean Corpuscular Hemoglobin 34.4H, Mean Corpuscular Hemoglobin Concent 36.6H, Red Cell Distribution Width 12.0, Platelet Count 265, Mean Platelet Volume 6.0L, Neutrophils (%) (Auto) 80.5H, Lymphocytes (%) (Auto) 13.5L, Monocytes (%) (Auto) 5.5, Eosinophils (%) (Auto) 0.0, Basophils (%) (Auto) 0.5, Sodium Level 139, Potassium Level 4.3, Chloride Level 105, Carbon Dioxide Level 23, Anion Gap 11, Blood Urea Nitrogen 22H, Creatinine 1.0, Estimat Glomerular Filtration Rate > 60, Glucose Level 286H, Calcium Level 8.8, Phosphorus Level 3.7, Magnesium Level 2.4, Total Bilirubin 0.5, Direct Bilirubin < 0.1, Aspartate Amino Transf (AST/SGOT) 36, Alanine Aminotransferase (ALT/SGPT) 98H, Alkaline Phosphatase 79, Total Protein 6.7, Albumin 2.8L, Globulin 3.9, Albumin/Globulin Ratio 0.7L Current Medications Medications (Trade) Dose Ordered Sig/Alex Route PRN Reason Start Time Stop Time Status Last Admin Dose Admin Acetaminophen (Tylenol) 650 mg Q6H PRN ORAL Temp >100.5 09/12/20 00:00 10/12/20 00:00 Albuterol Sulfate (Proventil MDI) 2 puff Q4H INH 09/12/20 08:00 12/11/20 00:00 09/14/20 12:15 Azithromycin 500 mg/Dextrose 275 ml @ 275 mls/hr Q24HRS IV 09/12/20 10:00 09/18/20 10:59 09/14/20 10:35 Ceftriaxone Sodium 1 gm/ Dextrose 55 ml @ 110 mls/hr Q24H IVPB 09/12/20 11:00 09/19/20 10:59 09/14/20 11:26 Dexamethasone Sodium Phosphate (Decadron 10mg/ ml Inj) 6 mg DAILY IV 09/12/20 09:00 09/20/20 12:00 09/14/20 09:29 Guaifenesin (Robitussin) 200 mg Q6HR PRN ORAL For Cough 09/13/20 23:45 12/12/20 23:44 09/14/20 10:54 Heparin Sodium (Porcine) (Heparin 5000 units/ml) 5,000 units EVERY 12 HOURS SUBQ 09/12/20 09:00 10/27/20 08:59 09/14/20 09:31 Remdesivir 100 mg/ Sodium Chloride 250 ml @ 250 mls/hr Q24H IV 09/13/20 22:00 09/16/20 22:59 09/13/20 21:02 Assessment/Plan Assessment/Plan Assessment/Plan 1. COVID-19 pneumonia. 2. Hypoxemia., likely secondary to COVID 3. HTN PLAN: on Decadron (09/12-) on azithromycin and ceftriaxone Started on remdesivir per ID (09/13-) Saturating 95% R/A We will follow carefully. Above plan was discussed with supervising physician Anil Gray NP Sep 14, 2020 12:31
--- NOTE | 2020-09-14 13:21 | Internal Med Progress Note ---
Subjective Physician Name Yrn Wright Attending Physician Yrn Wright M.D. Current Medications Medications (Trade) Dose Ordered Sig/Alex Route PRN Reason Start Time Stop Time Status Last Admin Dose Admin Acetaminophen (Tylenol) 650 mg Q6H PRN ORAL Temp >100.5 09/12/20 00:00 10/12/20 00:00 Albuterol Sulfate (Proventil MDI) 2 puff Q4H INH 09/12/20 08:00 12/11/20 00:00 09/14/20 12:15 Azithromycin 500 mg/Dextrose 275 ml @ 275 mls/hr Q24HRS IV 09/12/20 10:00 09/18/20 10:59 09/14/20 10:35 Ceftriaxone Sodium 1 gm/ Dextrose 55 ml @ 110 mls/hr Q24H IVPB 09/12/20 11:00 09/19/20 10:59 09/14/20 11:26 Dexamethasone Sodium Phosphate (Decadron 10mg/ ml Inj) 6 mg DAILY IV 09/12/20 09:00 09/20/20 12:00 09/14/20 09:29 Guaifenesin (Robitussin) 200 mg Q6HR PRN ORAL For Cough 09/13/20 23:45 12/12/20 23:44 09/14/20 10:54 Heparin Sodium (Porcine) (Heparin 5000 units/ml) 5,000 units EVERY 12 HOURS SUBQ 09/12/20 09:00 10/27/20 08:59 09/14/20 09:31 Remdesivir 100 mg/ Sodium Chloride 250 ml @ 250 mls/hr Q24H IV 09/13/20 22:00 09/16/20 22:59 09/13/20 21:02 Allergies: Coded Allergies: No Known Allergies (Unverified , 09/11/20) ROS Limited/Unobtainable: No Subjective on NC Objective Last Vital Signs Date Time Temp Pulse Resp B/P (MAP) Pulse Ox O2 Delivery O2 Flow Rate FiO2 09/14/20 12:00 97.3 57 18 115/79 (91) 94 09/14/20 09:00 Room Air 09/13/20 20:42 1.5 Laboratory Tests Test 09/14/20 04:20 White Blood Count 9.9 K/UL (4.8-10.8) Red Blood Count 3.78 M/UL (4.70-6.10) L Hemoglobin 13.0 G/DL (14.2-18.0) L Hematocrit 35.5 % (42.0-52.0) L Mean Corpuscular Volume 94 FL (80-99) Mean Corpuscular Hemoglobin 34.4 PG (27.0-31.0) H Mean Corpuscular Hemoglobin Concent 36.6 G/DL (32.0-36.0) H Red Cell Distribution Width 12.0 % (11.6-14.8) Platelet Count 265 K/UL (150-450) Mean Platelet Volume 6.0 FL (6.5-10.1) L Neutrophils (%) (Auto) 80.5 % (45.0-75.0) H Lymphocytes (%) (Auto) 13.5 % (20.0-45.0) L Monocytes (%) (Auto) 5.5 % (1.0-10.0) Eosinophils (%) (Auto) 0.0 % (0.0-3.0) Basophils (%) (Auto) 0.5 % (0.0-2.0) Sodium Level 139 MMOL/L (136-145) Potassium Level 4.3 MMOL/L (3.5-5.1) Chloride Level 105 MMOL/L (98-107) Carbon Dioxide Level 23 MMOL/L (21-32) Anion Gap 11 mmol/L (5-15) Blood Urea Nitrogen 22 mg/dL (7-18) H Creatinine 1.0 MG/DL (0.55-1.30) Estimat Glomerular Filtration Rate > 60 mL/min (>60) Glucose Level 286 MG/DL (74-106) H Calcium Level 8.8 MG/DL (8.5-10.1) Phosphorus Level 3.7 MG/DL (2.5-4.9) Magnesium Level 2.4 MG/DL (1.8-2.4) Total Bilirubin 0.5 MG/DL (0.2-1.0) Direct Bilirubin < 0.1 MG/DL (0.0-0.3) Aspartate Amino Transf (AST/SGOT) 36 U/L (15-37) Alanine Aminotransferase (ALT/SGPT) 98 U/L (12-78) H Alkaline Phosphatase 79 U/L (46-116) Total Protein 6.7 G/DL (6.4-8.2) Albumin 2.8 G/DL (3.4-5.0) L Globulin 3.9 g/dL Albumin/Globulin Ratio 0.7 (1.0-2.7) L Microbiology Date/Time Source Procedure Growth Status 09/11/20 20:00 Urine,Clean Catch Urine Culture - Final Mixed Gram Positive Organism Complete Intake and Output 09/13/20 09/14/20 19:00 07:00 Intake Total 1000 ml Output Total 2175 ml 900 ml Balance -1175 ml -900 ml Intake Oral 1000 ml Output Urine Total 2175 ml 900 ml # Voids 6 Objective General appearance: alert, cooperative, no distress, appears stated age Head: Normocephalic, without obvious abnormality, atraumatic Eyes: conjunctivae/corneas clear. PERRL, EOM's intact. Fundi benign Throat: Lips, mucosa, and tongue normal. Teeth and gums normal Neck: supple, symmetrical, trachea midline, no adenopathy, thyroid: not enlarged, symmetric, no tenderness/mass/nodules, no carotid bruit and no JVD Lungs: clear to auscultation bilaterally Heart: regular rate and rhythm, S1, S2 normal, no murmur, click, rub or gallop Abdomen: soft, non-tender. Bowel sounds normal. No masses, no organomegaly Extremities: extremities normal, atraumatic, no cyanosis or edema Pulses: 2+ and symmetric Skin: Skin color, texture, turgor normal. No rashes or lesions Neurologic: Grossly normal Assessment/Plan Assessment/Plan #COVID pneumonia #hypoxemic resp failure #sepsis - admit inpatient - ID eval - pulm eval - dexamethsone - defer remdesevir to ID - breathing tx - supplemental O2 - DCT ppx - monitor labs - avoid nephrotoxins Yrn Wright M.D. Sep 14, 2020 13:21
[2020-09-14 16:00] VITALS: BP 159/86
[2020-09-14] MEDS ORDERED: NS 275ml ONE (17:03)
[2020-09-14] MEDS ORDERED: D5W 275ml ONE (17:03)
[2020-09-14] MEDS ORDERED: Tubing IV Secondary IV ONE (17:03)
--- NOTE | 2020-09-14 19:30 | NUR ---
NURSE HAND-OFF: Important Events on Shift: On room air Patient Status: stable Diet: Reg Pending Orders: n/a Pending Results/Labs: n/a Pending MD notification: n/a Latest Vital Signs: Temperature 98.1 , Pulse 53 , B/P 159 /86 , Respiratory Rate 16 , O2 SAT 96 , Room Air. Vital Sign Comment: VS stable Latest Lynne Fall Score: 20 Fall Risk: Low Risk Safety Measures: Call light Within Reach, Bed Alarm Zone 1, Side Rails Side Rails x2, Bed position Low and Locked. Fall Precautions: Yellow Socks Patient Fall Education Report given to Kiarra GARRISON.
--- NOTE | 2020-09-14 19:30 | NUR ---
NURSE NOTES: Received report from BLADIMIR Lee. AAO x 4, on room air, ambulatory. IV site intact and patent. Denies pain or discomfort. No acute distress noted. Bed locked, lowest position, alarm on, side rails up, call light within reach. Will continue to monitor.
[2020-09-14 20:00] VITALS: BP 146/77
--- NOTE | 2020-09-14 21:48 | Cardiac Electrophysiology PN ---
Assessment/Plan Assessment/Plan 1. Shortness of breath due to Covid PNA. His BNP is within normal range Ruled out for OR Echo EF 65%. Now on Room Air 2. History of hypertension. Blood pressure currently is stable. 3. Mild renal failure with creatinine of 1.4. 4. Pancreatitis. Lipase elevated at 536. Subjective Subjective Now on RA. In Covid isolation. On Remdesevir Objective Last 24 Hour Vital Signs Date Time Temp Pulse Resp B/P (MAP) Pulse Ox O2 Delivery O2 Flow Rate FiO2 09/14/20 20:48 Room Air 09/14/20 16:00 98.1 53 16 159/86 (110) 96 09/14/20 12:00 97.3 57 18 115/79 (91) 94 09/14/20 09:00 Room Air 09/14/20 08:00 98.1 58 18 121/71 (88) 95 09/14/20 04:00 97.0 50 20 142/84 (103) 97 09/14/20 00:00 96.9 48 20 165/87 (113) 97 Intake and Output 09/13/20 09/14/20 19:00 07:00 Intake Total 1000 ml Output Total 2175 ml 900 ml Balance -1175 ml -900 ml Intake Oral 1000 ml Output Urine Total 2175 ml 900 ml # Voids 6 Laboratory Tests Test 09/14/20 04:20 White Blood Count 9.9 K/UL (4.8-10.8) Red Blood Count 3.78 M/UL (4.70-6.10) L Hemoglobin 13.0 G/DL (14.2-18.0) L Hematocrit 35.5 % (42.0-52.0) L Mean Corpuscular Volume 94 FL (80-99) Mean Corpuscular Hemoglobin 34.4 PG (27.0-31.0) H Mean Corpuscular Hemoglobin Concent 36.6 G/DL (32.0-36.0) H Red Cell Distribution Width 12.0 % (11.6-14.8) Platelet Count 265 K/UL (150-450) Mean Platelet Volume 6.0 FL (6.5-10.1) L Neutrophils (%) (Auto) 80.5 % (45.0-75.0) H Lymphocytes (%) (Auto) 13.5 % (20.0-45.0) L Monocytes (%) (Auto) 5.5 % (1.0-10.0) Eosinophils (%) (Auto) 0.0 % (0.0-3.0) Basophils (%) (Auto) 0.5 % (0.0-2.0) Sodium Level 139 MMOL/L (136-145) Potassium Level 4.3 MMOL/L (3.5-5.1) Chloride Level 105 MMOL/L (98-107) Carbon Dioxide Level 23 MMOL/L (21-32) Anion Gap 11 mmol/L (5-15) Blood Urea Nitrogen 22 mg/dL (7-18) H Creatinine 1.0 MG/DL (0.55-1.30) Estimat Glomerular Filtration Rate > 60 mL/min (>60) Glucose Level 286 MG/DL (74-106) H Calcium Level 8.8 MG/DL (8.5-10.1) Phosphorus Level 3.7 MG/DL (2.5-4.9) Magnesium Level 2.4 MG/DL (1.8-2.4) Total Bilirubin 0.5 MG/DL (0.2-1.0) Direct Bilirubin < 0.1 MG/DL (0.0-0.3) Aspartate Amino Transf (AST/SGOT) 36 U/L (15-37) Alanine Aminotransferase (ALT/SGPT) 98 U/L (12-78) H Alkaline Phosphatase 79 U/L (46-116) Total Protein 6.7 G/DL (6.4-8.2) Albumin 2.8 G/DL (3.4-5.0) L Globulin 3.9 g/dL Albumin/Globulin Ratio 0.7 (1.0-2.7) L Objective HEAD AND NECK: Showed no JVD. LUNGS: Coarse rhonchi. CARDIOVASCULAR: Shows regular S1 and S2 with no gallop. ABDOMEN: Soft. EXTREMITIES: No pitting edema. Thiago Villafana MD Sep 14, 2020 21:48
[2020-09-14] MEDS: Maintenance Dose:Remdesivir 100mg/NS 230ml x 4 Doses IV SCH ×2 (21:58)
--- NOTE | 2020-09-14 23:08 | Infectious Diseases Prog Note ---
Assessment/Plan Assessment/Plan ASSESSMENT AND PLAN: 1. covid-19 infection with pna, hypoxia, fevers - dexamethasone and remdesivir - azithromycin and ceftriaxone - monitor labs, chest x-ray - monitor hypoxia 2. Pancreatitis. Lipase is elevated at 536. Treatment per primary care team. 3. Hypertension. 4. No allergies. 5. Social history is negative. 6. Family history is noncontributory. 7. MAR is noted. 8. Case was discussed with RN. 9. Discussed with pharmacy and communicated with Dr. Wright. Subjective Constitutional: Reports: fatigue; Denies: fever HEENT: Reports: congestion - less Respiratory: Reports: shortness of breath - less Cardiovascular: Denies: chest pain Gastrointestinal/Abdominal: Denies: nausea, vomiting, diarrhea Genitourinary: Denies: dysuria, hematuria Neurologic: Denies: headache Skin: Denies: rash Hematologic: Denies: bleeding Musculoskeletal: Denies: pain Allergies: Coded Allergies: No Known Allergies (Unverified , 09/11/20) Objective Last 24 Hour Vital Signs Date Time Temp Pulse Resp B/P (MAP) Pulse Ox O2 Delivery O2 Flow Rate FiO2 09/14/20 20:48 Room Air 09/14/20 20:00 96.5 50 16 146/77 (100) 97 09/14/20 16:00 98.1 53 16 159/86 (110) 96 09/14/20 12:00 97.3 57 18 115/79 (91) 94 09/14/20 09:00 Room Air 09/14/20 08:00 98.1 58 18 121/71 (88) 95 09/14/20 04:00 97.0 50 20 142/84 (103) 97 09/14/20 00:00 96.9 48 20 165/87 (113) 97 Height (Feet): 5 Height (Inches): 4.00 Weight (Pounds): 180 General Appearance: no acute distress HEENT: normocephalic, atraumatic, anicteric, mucous membranes moist Respiratory/Chest: crackles/rales, rhonchi - bilaterally Cardiovascular: normal rate, regular rhythm, no gallop/murmur Abdomen: normal bowel sounds, soft, non tender, no organomegaly, non distended Genitourinary: other - no hodge Extremities: no cyanosis Skin: no rash Neurologic/Psychiatric: industrial sociologist II-XII grossly normal, alert, responsive Lymphatic: no neck adenopathy Musculoskeletal: no effusion Chest x-ray - 09/14/20: Procedure: XRAY Chest 1v Indication: Cough Technique: One view of the chest Comparison: none Findings: There are bilateral mostly peripheral streaky and patchy infiltrates in a peribronchovascular distribution. The heart size is normal. The pleural spaces are clear Impression: Bilateral infiltrates, consistent with multifocal pneumonia, likely viral Microbiology Date/Time Source Procedure Growth Status 09/11/20 20:00 Urine,Clean Catch Urine Culture - Final Mixed Gram Positive Organism Complete 09/11/20 11:15 Nasopharynx SARS-CoV-2 RdRp Gene Assay - Final Complete 09/11/20 11:00 Blood Blood Culture - Preliminary NO GROWTH AFTER 24 HOURS Resulted Laboratory Tests Test 09/14/20 04:20 White Blood Count 9.9 K/UL (4.8-10.8) Red Blood Count 3.78 M/UL (4.70-6.10) L Hemoglobin 13.0 G/DL (14.2-18.0) L Hematocrit 35.5 % (42.0-52.0) L Mean Corpuscular Volume 94 FL (80-99) Mean Corpuscular Hemoglobin 34.4 PG (27.0-31.0) H Mean Corpuscular Hemoglobin Concent 36.6 G/DL (32.0-36.0) H Red Cell Distribution Width 12.0 % (11.6-14.8) Platelet Count 265 K/UL (150-450) Mean Platelet Volume 6.0 FL (6.5-10.1) L Neutrophils (%) (Auto) 80.5 % (45.0-75.0) H Lymphocytes (%) (Auto) 13.5 % (20.0-45.0) L Monocytes (%) (Auto) 5.5 % (1.0-10.0) Eosinophils (%) (Auto) 0.0 % (0.0-3.0) Basophils (%) (Auto) 0.5 % (0.0-2.0) Sodium Level 139 MMOL/L (136-145) Potassium Level 4.3 MMOL/L (3.5-5.1) Chloride Level 105 MMOL/L (98-107) Carbon Dioxide Level 23 MMOL/L (21-32) Anion Gap 11 mmol/L (5-15) Blood Urea Nitrogen 22 mg/dL (7-18) H Creatinine 1.0 MG/DL (0.55-1.30) Estimat Glomerular Filtration Rate > 60 mL/min (>60) Glucose Level 286 MG/DL (74-106) H Calcium Level 8.8 MG/DL (8.5-10.1) Phosphorus Level 3.7 MG/DL (2.5-4.9) Magnesium Level 2.4 MG/DL (1.8-2.4) Total Bilirubin 0.5 MG/DL (0.2-1.0) Direct Bilirubin < 0.1 MG/DL (0.0-0.3) Aspartate Amino Transf (AST/SGOT) 36 U/L (15-37) Alanine Aminotransferase (ALT/SGPT) 98 U/L (12-78) H Alkaline Phosphatase 79 U/L (46-116) Total Protein 6.7 G/DL (6.4-8.2) Albumin 2.8 G/DL (3.4-5.0) L Globulin 3.9 g/dL Albumin/Globulin Ratio 0.7 (1.0-2.7) L Current Medications Medications (Trade) Dose Ordered Sig/Alex Route PRN Reason Start Time Stop Time Status Last Admin Dose Admin Acetaminophen (Tylenol) 650 mg Q6H PRN ORAL Temp >100.5 09/12/20 00:00 10/12/20 00:00 Albuterol Sulfate (Proventil MDI) 2 puff Q4H INH 09/12/20 08:00 12/11/20 00:00 09/14/20 21:04 Azithromycin 500 mg/Dextrose 275 ml @ 275 mls/hr Q24HRS IV 09/12/20 10:00 09/18/20 10:59 09/14/20 10:35 Ceftriaxone Sodium 1 gm/ Dextrose 55 ml @ 110 mls/hr Q24H IVPB 09/12/20 11:00 09/19/20 10:59 09/14/20 11:26 Dexamethasone Sodium Phosphate (Decadron 10mg/ ml Inj) 6 mg DAILY IV 09/12/20 09:00 09/20/20 12:00 09/14/20 09:29 Guaifenesin (Robitussin) 200 mg Q6HR PRN ORAL For Cough 09/13/20 23:45 12/12/20 23:44 09/14/20 21:04 Heparin Sodium (Porcine) (Heparin 5000 units/ml) 5,000 units EVERY 12 HOURS SUBQ 09/12/20 09:00 10/27/20 08:59 09/14/20 21:06 Remdesivir 100 mg/ Sodium Chloride 250 ml @ 250 mls/hr Q24H IV 09/13/20 22:00 09/16/20 22:59 09/14/20 21:58 John Cody MD Sep 14, 2020 23:08
[2020-09-15] VITALS: BP 148/73
[2020-09-15] MEDS: Albuterol 90mcg Inhaler 8gm INH SCH ×6 (00:44→20:00)
[2020-09-15 04:00] VITALS: BP 117/68
--- NOTE | 2020-09-15 06:46 | NUR ---
NURSE HAND-OFF: Important Events on Shift: Patient Status: stable Diet: reg Pending Orders: Pending Results/Labs:am labs Pending MD notification: Latest Vital Signs: Temperature 97.7 , Pulse 51 , B/P 117 /68 , Respiratory Rate 18 , O2 SAT 97 , Nasal Cannula, O2 Flow Rate 1.5 . Vital Sign Comment: [] Latest Lynne Fall Score: 20 Fall Risk: Low Risk Safety Measures: Call light Within Reach, Bed Alarm Zone 1, Side Rails Side Rails x2, Bed position Low and Locked. Fall Precautions: Pablito Lowe Patient Fall Education Addendum: 09/15/20 at 0730 by STEFF MEZA RN RN HAND-OFF: MASON paper left at nursing station
[2020-09-15 08:00] VITALS: BP 120/67
--- NOTE | 2020-09-15 08:00 | NUR ---
NURSE NOTES: Received report. Patient awake and oriented, in no distress, on room air, denies SOB, VS stable. IV intact S/L. Patient updated on plan of care. Side rails upx2, bed low and locked, call light within reach.
[2020-09-15] MEDS: dexAMETHasone 10mg/ml Inj IV SCH (08:15)
[2020-09-15] MEDS: Heparin 5000 units/ml inj SUBQ SCH ×2 (08:16→20:59)
[2020-09-15 09:29] LABS: ALANINE AMINOTRANSFERASE 111 U/L (12-78); ALBUMIN/GLOBULIN RATIO 0.8 (1.0-2.7); ALKALINE PHOSPHATASE 78 U/L (46-116); ANION GAP 10 mmol/L (5-15); ASPARTATE AMINO TRANSFERASE 43 U/L (15-37); BILIRUBIN,DIRECT 0.1 MG/DL (0.0-0.3); BILIRUBIN,TOTAL 0.6 MG/DL (0.2-1.0); BLOOD UREA NITROGEN 24 mg/dL (7-18); CALCIUM 8.3 MG/DL (8.5-10.1); CARBON DIOXIDE 24 MMOL/L (21-32); CHLORIDE 104 MMOL/L (98-107); CREATININE 1.2 MG/DL (0.55-1.30); POTASSIUM 3.9 MMOL/L (3.5-5.1); SODIUM 138 MMOL/L (136-145)
[2020-09-15 09:43] LABS: BASOPHILS % (AUTO) 0.7 % (0.0-2.0); EOSINOPHILS % (AUTO) 0.3 % (0.0-3.0); HEMOGLOBIN 14.1 G/DL (14.2-18.0); LYMPHOCYTES % (AUTO) 25.8 % (20.0-45.0); MEAN CORPUSCULAR VOLUME 94 FL (80-99); MONOCYTES % (AUTO) 6.5 % (1.0-10.0); NEUTROPHILS % (AUTO) 66.7 % (45.0-75.0); PLATELET COUNT 307 K/UL (150-450); RED BLOOD COUNT 4.15 M/UL (4.70-6.10); RED CELL DISTRIBUTION WIDTH 11.8 % (11.6-14.8); WHITE BLOOD COUNT 9.7 K/UL (4.8-10.8)
[2020-09-15] MEDS: Azithromycin 500 MG in D5W 275 ML IV SCH (09:55)
[2020-09-15] MEDS: cefTRIAXone 1 GM in D5W 55 ML IVPB SCH (11:44)
[2020-09-15 12:00] VITALS: BP 133/83
--- NOTE | 2020-09-15 12:02 | Pulmonology Progress Note ---
Subjective ROS Limited/Unobtainable: No Interval Events: none major reported per nursing Constitutional: Reports: fatigue; Denies: fever HEENT: Repors: no symptoms Respiratory: Reports: dry cough, shortness of breath Cardiovascular: Reports: no symptoms Gastrointestinal/Abdominal: Denies: nausea, vomiting, diarrhea Skin: Denies: rash Musculoskeletal: Denies: pain Allergies: Coded Allergies: No Known Allergies (Unverified , 09/11/20) All Systems: reviewed and negative except above Objective Last 24 Hour Vital Signs Date Time Temp Pulse Resp B/P (MAP) Pulse Ox O2 Delivery O2 Flow Rate FiO2 09/15/20 09:00 Room Air 09/15/20 08:00 97.7 60 16 120/67 (84) 95 09/15/20 04:00 97.7 51 18 117/68 (84) 97 09/15/20 00:00 97.5 48 18 148/73 (98) 95 09/14/20 20:48 Room Air 09/14/20 20:00 96.5 50 16 146/77 (100) 97 09/14/20 16:00 98.1 53 16 159/86 (110) 96 Intake and Output 09/14/20 09/15/20 19:00 07:00 Intake Total 875 ml Output Total 1200 ml 1100 ml Balance -325 ml -1100 ml Intake Oral 600 ml IV Total 275 ml Output Urine Total 1200 ml 1100 ml # Voids 3 General Appearance: no acute distress HEENT: normocephalic, atraumatic Respiratory: lungs clear Cardiovascular: normal rate, regular rhythm Abdomen: soft, non tender Laboratory Tests 09/15/20 08:15: White Blood Count 9.7, Red Blood Count 4.15L, Hemoglobin 14.1L, Hematocrit 39.0L , Mean Corpuscular Volume 94, Mean Corpuscular Hemoglobin 34.0H, Mean Corpuscular Hemoglobin Concent 36.2H, Red Cell Distribution Width 11.8, Platelet Count 307, Mean Platelet Volume 6.8, Neutrophils (%) (Auto) 66.7, Lymphocytes (%) (Auto) 25.8, Monocytes (%) (Auto) 6.5, Eosinophils (%) (Auto) 0.3, Basophils (%) (Auto) 0.7, Sodium Level 138, Potassium Level 3.9, Chloride Level 104, Carbon Dioxide Level 24, Anion Gap 10, Blood Urea Nitrogen 24H, Creatinine 1.2, Estimat Glomerular Filtration Rate > 60, Glucose Level 301H, Calcium Level 8.3L, Total Bilirubin 0.6, Direct Bilirubin 0.1, Aspartate Amino Transf (AST/SGOT) 43H , Alanine Aminotransferase (ALT/SGPT) 111H, Alkaline Phosphatase 78, Total Protein 6.9, Albumin 3.0L, Globulin 3.9, Albumin/Globulin Ratio 0.8L Current Medications Medications (Trade) Dose Ordered Sig/Alex Route PRN Reason Start Time Stop Time Status Last Admin Dose Admin Acetaminophen (Tylenol) 650 mg Q6H PRN ORAL Temp >100.5 09/12/20 00:00 10/12/20 00:00 Albuterol Sulfate (Proventil MDI) 2 puff Q4H INH 09/12/20 08:00 12/11/20 00:00 09/15/20 11:44 Azithromycin 500 mg/Dextrose 275 ml @ 275 mls/hr Q24HRS IV 09/12/20 10:00 09/18/20 10:59 09/15/20 09:55 Ceftriaxone Sodium 1 gm/ Dextrose 55 ml @ 110 mls/hr Q24H IVPB 09/12/20 11:00 09/19/20 10:59 09/15/20 11:44 Dexamethasone Sodium Phosphate (Decadron 10mg/ ml Inj) 6 mg DAILY IV 09/12/20 09:00 09/20/20 12:00 09/15/20 08:15 Guaifenesin (Robitussin) 200 mg Q6HR PRN ORAL For Cough 09/13/20 23:45 12/12/20 23:44 09/14/20 21:04 Heparin Sodium (Porcine) (Heparin 5000 units/ml) 5,000 units EVERY 12 HOURS SUBQ 09/12/20 09:00 10/27/20 08:59 09/15/20 08:16 Remdesivir 100 mg/ Sodium Chloride 250 ml @ 250 mls/hr Q24H IV 09/13/20 22:00 09/16/20 22:59 09/14/20 21:58 Assessment/Plan Assessment/Plan Assessment/Plan 1. COVID-19 pneumonia. 2. Hypoxemia., likely secondary to COVID 3. HTN PLAN: on Decadron (09/12-) on azithromycin and ceftriaxone Started on remdesivir per ID (09/13-) Saturating 95% R/A We will follow carefully. Above plan was discussed with supervising physician Anil Gray NP Sep 15, 2020 12:02
--- NOTE | 2020-09-15 12:34 | Internal Med Progress Note ---
Subjective Physician Name Yrn Wright Attending Physician Yrn Wright M.D. Current Medications Medications (Trade) Dose Ordered Sig/Alex Route PRN Reason Start Time Stop Time Status Last Admin Dose Admin Acetaminophen (Tylenol) 650 mg Q6H PRN ORAL Temp >100.5 09/12/20 00:00 10/12/20 00:00 Albuterol Sulfate (Proventil MDI) 2 puff Q4H INH 09/12/20 08:00 12/11/20 00:00 09/15/20 11:44 Azithromycin 500 mg/Dextrose 275 ml @ 275 mls/hr Q24HRS IV 09/12/20 10:00 09/18/20 10:59 09/15/20 09:55 Ceftriaxone Sodium 1 gm/ Dextrose 55 ml @ 110 mls/hr Q24H IVPB 09/12/20 11:00 09/19/20 10:59 09/15/20 11:44 Dexamethasone Sodium Phosphate (Decadron 10mg/ ml Inj) 6 mg DAILY IV 09/12/20 09:00 09/20/20 12:00 09/15/20 08:15 Guaifenesin (Robitussin) 200 mg Q6HR PRN ORAL For Cough 09/13/20 23:45 12/12/20 23:44 09/14/20 21:04 Heparin Sodium (Porcine) (Heparin 5000 units/ml) 5,000 units EVERY 12 HOURS SUBQ 09/12/20 09:00 10/27/20 08:59 09/15/20 08:16 Remdesivir 100 mg/ Sodium Chloride 250 ml @ 250 mls/hr Q24H IV 09/13/20 22:00 09/16/20 22:59 09/14/20 21:58 Allergies: Coded Allergies: No Known Allergies (Unverified , 09/11/20) ROS Limited/Unobtainable: No Constitutional: Reports: weakness HEENT: Denies: no symptoms, eye pain, blurred vision, tearing, double vision, ear pain, ear discharge, nose pain, nose congestion, throat pain, throat swelling, mouth pain, mouth swelling, other Cardiovascular: Denies: no symptoms, chest pain, edema, irregular heart rate, lightheadedness, palpitations, syncope, other Respiratory: Denies: no symptoms, cough, orthopnea, shortness of breath, SOB with excertion, SOB at rest, sputum, stridor, wheezing, other Gastrointestinal/Abdominal: Denies: no symptoms, abdomen distended, abdominal pain, black stools, tarry stools, blood in stool, constipated, diarrhea, difficulty swallowing, nausea, poor appetite, poor fluid intake, rectal bleeding, vomiting, other Genitourinary: Denies: no symptoms, burning, discharge, frequency, flank pain, hematuria, incontinence, pain, urgency, other Neurologic/Psychiatric: Denies: no symptoms, anxiety, depressed, emotional problems, headache, numbness, paresthesia, pre-existing deficit, seizure, tingling, tremors, weakness, other Subjective now on room air Objective Last Vital Signs Date Time Temp Pulse Resp B/P (MAP) Pulse Ox O2 Delivery O2 Flow Rate FiO2 09/15/20 12:00 98.2 55 16 133/83 (100) 95 09/15/20 09:00 Room Air 09/13/20 20:42 1.5 Laboratory Tests Test 09/15/20 08:15 White Blood Count 9.7 K/UL (4.8-10.8) Red Blood Count 4.15 M/UL (4.70-6.10) L Hemoglobin 14.1 G/DL (14.2-18.0) L Hematocrit 39.0 % (42.0-52.0) L Mean Corpuscular Volume 94 FL (80-99) Mean Corpuscular Hemoglobin 34.0 PG (27.0-31.0) H Mean Corpuscular Hemoglobin Concent 36.2 G/DL (32.0-36.0) H Red Cell Distribution Width 11.8 % (11.6-14.8) Platelet Count 307 K/UL (150-450) Mean Platelet Volume 6.8 FL (6.5-10.1) Neutrophils (%) (Auto) 66.7 % (45.0-75.0) Lymphocytes (%) (Auto) 25.8 % (20.0-45.0) Monocytes (%) (Auto) 6.5 % (1.0-10.0) Eosinophils (%) (Auto) 0.3 % (0.0-3.0) Basophils (%) (Auto) 0.7 % (0.0-2.0) Sodium Level 138 MMOL/L (136-145) Potassium Level 3.9 MMOL/L (3.5-5.1) Chloride Level 104 MMOL/L (98-107) Carbon Dioxide Level 24 MMOL/L (21-32) Anion Gap 10 mmol/L (5-15) Blood Urea Nitrogen 24 mg/dL (7-18) H Creatinine 1.2 MG/DL (0.55-1.30) Estimat Glomerular Filtration Rate > 60 mL/min (>60) Glucose Level 301 MG/DL (74-106) H Calcium Level 8.3 MG/DL (8.5-10.1) L Total Bilirubin 0.6 MG/DL (0.2-1.0) Direct Bilirubin 0.1 MG/DL (0.0-0.3) Aspartate Amino Transf (AST/SGOT) 43 U/L (15-37) H Alanine Aminotransferase (ALT/SGPT) 111 U/L (12-78) H Alkaline Phosphatase 78 U/L (46-116) Total Protein 6.9 G/DL (6.4-8.2) Albumin 3.0 G/DL (3.4-5.0) L Globulin 3.9 g/dL Albumin/Globulin Ratio 0.8 (1.0-2.7) L Intake and Output 09/14/20 09/15/20 19:00 07:00 Intake Total 875 ml Output Total 1200 ml 1100 ml Balance -325 ml -1100 ml Intake Oral 600 ml IV Total 275 ml Output Urine Total 1200 ml 1100 ml # Voids 3 Objective General appearance: alert, cooperative, no distress, appears stated age Head: Normocephalic, without obvious abnormality, atraumatic Eyes: conjunctivae/corneas clear. PERRL, EOM's intact. Fundi benign Throat: Lips, mucosa, and tongue normal. Teeth and gums normal Neck: supple, symmetrical, trachea midline, no adenopathy, thyroid: not en larged, symmetric, no tenderness/mass/nodules, no carotid bruit and no JVD Lungs: clear to auscultation bilaterally Heart: regular rate and rhythm, S1, S2 normal, no murmur, click, rub or gallop Abdomen: soft, non-tender. Bowel sounds normal. No masses, no organomegaly Extremities: extremities normal, atraumatic, no cyanosis or edema Pulses: 2+ and symmetric Skin: Skin color, texture, turgor normal. No rashes or lesions Neurologic: Grossly normal Assessment/Plan Assessment/Plan #COVID pneumonia #hypoxemic resp failure #sepsis - admit inpatient - ID eval - pulm eval - dexamethsone - defer remdesevir to ID - breathing tx - supplemental O2 - DCT ppx - monitor labs - avoid nephrotoxins Yrn Wright M.D. Sep 15, 2020 12:34
[2020-09-15 16:00] VITALS: BP 145/80
--- NOTE | 2020-09-15 19:04 | NUR ---
NURSE HAND-OFF: Important Events on Shift: On room air, stable, d/c planning for tomorrow per Dr. Wright. Patient Status: stable Diet: Reg Pending Orders: n/a Pending Results/Labs: n/a Pending MD notification: n/a Latest Vital Signs: Temperature 98.2 , Pulse 56 , B/P 145 /80 , Respiratory Rate 16 , O2 SAT 95 Vital Sign Comment: VS stable Latest Lynne Fall Score: 20 Fall Risk: Low Risk Safety Measures: Call light Within Reach, Bed Alarm Zone 1, Side Rails Side Rails x2, Bed position Low and Locked. Fall Precautions: Yellow Socks Patient Fall Education Report given to Jaleesa GARRISON.
--- NOTE | 2020-09-15 19:40 | NUR ---
NURSE NOTES: Received patient awake in bed, AOx4, no s/s of acute distress. Urinal at bedside. IV access patent, flushed with normal saline. Bed low and locked, patient wearing non slip socks.
[2020-09-15 20:00] VITALS: BP 137/77
[2020-09-15] MEDS: Maintenance Dose:Remdesivir 100mg/NS 230ml x 4 Doses IV SCH ×2 (21:00)
[2020-09-16] VITALS: BP 124/75
[2020-09-16 04:00] VITALS: BP 124/75
[2020-09-16] MEDS: Albuterol 90mcg Inhaler 8gm INH SCH ×4 (04:00→11:41)
[2020-09-16 07:22] LABS: BASOPHILS % (AUTO) 0.4 % (0.0-2.0); EOSINOPHILS % (AUTO) 0.1 % (0.0-3.0); HEMATOCRIT 41.3 % (42.0-52.0); HEMOGLOBIN 14.1 G/DL (14.2-18.0); MEAN CORPUSCULAR VOLUME 97 FL (80-99); MONOCYTES % (AUTO) 5.5 % (1.0-10.0); NEUTROPHILS % (AUTO) 72.1 % (45.0-75.0); PLATELET COUNT 308 K/UL (150-450); RED BLOOD COUNT 4.25 M/UL (4.70-6.10); RED CELL DISTRIBUTION WIDTH 11.4 % (11.6-14.8); WHITE BLOOD COUNT 10.2 K/UL (4.8-10.8)
--- NOTE | 2020-09-16 07:26 | NUR ---
HAND-OFF: Report given to BLADIMIR Emerson.
--- NOTE | 2020-09-16 07:50 | NUR ---
NURSE NOTES: Received report from Jaleesa GARRISON, patient laying in bed with no signs of distress or other issues at this time. per report patients O2 sat at 95% RA. no shortness of breath noted. per report pt is ambulatory. IV on the right FA gauge #22 SL. call light within reach, bed in lowest position. side rales up x2. I will f/u as needed.
[2020-09-16 08:00] VITALS: BP 113/70
[2020-09-16 08:14] LABS: ALANINE AMINOTRANSFERASE 135 U/L (12-78); ALBUMIN 3.1 G/DL (3.4-5.0); ALBUMIN/GLOBULIN RATIO 0.8 (1.0-2.7); ALKALINE PHOSPHATASE 83 U/L (46-116); ANION GAP 9 mmol/L (5-15); ASPARTATE AMINO TRANSFERASE 36 U/L (15-37); BILIRUBIN,DIRECT < 0.1 MG/DL (0.0-0.3); BILIRUBIN,TOTAL 0.5 MG/DL (0.2-1.0); BLOOD UREA NITROGEN 23 mg/dL (7-18); CARBON DIOXIDE 26 MMOL/L (21-32); CHLORIDE 103 MMOL/L (98-107); CREATININE 1.1 MG/DL (0.55-1.30); POTASSIUM 4.3 MMOL/L (3.5-5.1); SODIUM 138 MMOL/L (136-145)
[2020-09-16 08:18] LABS: CALCIUM 8.3 MG/DL (8.5-10.1)
[2020-09-16] MEDS: dexAMETHasone 10mg/ml Inj IV SCH (09:38)
[2020-09-16] MEDS: Azithromycin 500 MG in D5W 275 ML IV SCH (09:39)
[2020-09-16] MEDS: Heparin 5000 units/ml inj SUBQ SCH (09:45)
--- NOTE | 2020-09-16 10:42 | Cardiac Electrophysiology PN ---
Assessment/Plan Assessment/Plan 1. Covid PNA. His BNP is within normal range Ruled out for [place] EF 65% on Room Air 2. History of hypertension. Blood pressure currently is stable. 3. Mild renal failure with creatinine of 1.4. 4. Pancreatitis. Lipase elevated at 536. Subjective Subjective In SR on RA. In Covid isolation. On Remdesevir Objective Last 24 Hour Vital Signs Date Time Temp Pulse Resp B/P (MAP) Pulse Ox O2 Delivery O2 Flow Rate FiO2 09/16/20 04:00 98.2 65 17 124/75 (91) 95 09/15/20 21:39 Room Air 09/15/20 20:00 97.9 60 17 137/77 (97) 95 09/15/20 16:00 98.2 56 16 145/80 (101) 95 09/15/20 12:00 98.2 55 16 133/83 (100) 95 Intake and Output 09/15/20 09/16/20 19:00 07:00 Intake Total 1230 ml 300 ml Output Total 1800 ml Balance -570 ml 300 ml Intake Oral 900 ml 300 ml IV Total 330 ml Output Urine Total 1800 ml # Voids 2 Laboratory Tests Test 09/16/20 04:10 White Blood Count 10.2 K/UL (4.8-10.8) Red Blood Count 4.25 M/UL (4.70-6.10) L Hemoglobin 14.1 G/DL (14.2-18.0) L Hematocrit 41.3 % (42.0-52.0) L Mean Corpuscular Volume 97 FL (80-99) Mean Corpuscular Hemoglobin 33.1 PG (27.0-31.0) H Mean Corpuscular Hemoglobin Concent 34.0 G/DL (32.0-36.0) Red Cell Distribution Width 11.4 % (11.6-14.8) L Platelet Count 308 K/UL (150-450) Mean Platelet Volume 6.5 FL (6.5-10.1) Neutrophils (%) (Auto) 72.1 % (45.0-75.0) Lymphocytes (%) (Auto) 22.0 % (20.0-45.0) Monocytes (%) (Auto) 5.5 % (1.0-10.0) Eosinophils (%) (Auto) 0.1 % (0.0-3.0) Basophils (%) (Auto) 0.4 % (0.0-2.0) Sodium Level 138 MMOL/L (136-145) Potassium Level 4.3 MMOL/L (3.5-5.1) Chloride Level 103 MMOL/L (98-107) Carbon Dioxide Level 26 MMOL/L (21-32) Anion Gap 9 mmol/L (5-15) Blood Urea Nitrogen 23 mg/dL (7-18) H Creatinine 1.1 MG/DL (0.55-1.30) Estimat Glomerular Filtration Rate > 60 mL/min (>60) Glucose Level 315 MG/DL (74-106) H Calcium Level 8.3 MG/DL (8.5-10.1) L Total Bilirubin 0.5 MG/DL (0.2-1.0) Direct Bilirubin < 0.1 MG/DL (0.0-0.3) Aspartate Amino Transf (AST/SGOT) 36 U/L (15-37) Alanine Aminotransferase (ALT/SGPT) 135 U/L (12-78) H Alkaline Phosphatase 83 U/L (46-116) Total Protein 6.9 G/DL (6.4-8.2) Albumin 3.1 G/DL (3.4-5.0) L Globulin 3.8 g/dL Albumin/Globulin Ratio 0.8 (1.0-2.7) L Objective HEAD AND NECK: no JVD. LUNGS: Coarse rhonchi. CARDIOVASCULAR: regular S1 and S2 with no gallop. ABDOMEN: Soft. EXTREMITIES: No pitting edema. Thiago Villafana MD Sep 16, 2020 10:42
[2020-09-16] MEDS: cefTRIAXone 1 GM in D5W 55 ML IVPB SCH (11:37)
[2020-09-16 12:00] VITALS: BP 110/75
--- NOTE | 2020-09-16 14:58 | NUR ---
NURSE NOTES: Received order to d/c home. discharge instructions and belongings given to the patient. IV removed prior to d/c. pt left the floor with no signs of distress or other issues at this time. pt's sister will provide transportation. I will f/u as needed.
[2020-09-17] MEDS ORDERED: Azithromycin 500 MG in NS 275 ML IV SCH (10:00)
--- NOTE | 2020-09-17 11:35 | Discharge Summary ---
Discharge Summary Discharge Summary _ DATE OF ADMISSION: 09/11/2020 DATE OF DISCHARGE: 09/16/2020 DISCHARGED BY: Dr. Wright REASON FOR ADMISSION: 54 years old male presented to emergency department with dry cough and fever for 5 days. He also reported fatigue ,nausea , and some abdominal discomfort. He denied chest pain. He denied hemoptysis , melena, hematochezia or hematuria. In emergency department patient was febrile with temperature 102.7 and borderline hypoxic. Rapid COVID-19 was positive; influenza swab test was negative. Chest x-ray revealed bilateral infiltrates, consistent with multifocal pneumonia, likely viral. Laboratory work-up revealed no leukocytosis , stable hemoglobin, hematocrit and platelet count; lymphopenia noted. Troponin negative. ProBNP 64. Stable electrolytes. BUN 15, creatinine 1.4. Ferritin above 2000, LDH 441 and CRP 98.2 In emergency department patient received empiric antibiotic, steroids, 1 L of fluid and admitted for further management. CONSULTANTS: panama hat blocker Dr. Hernandez pulmonary Dr. Johansen ID specialist Dr. Cody HOSPITAL COURSE: Patient admitted to isolation room. Supplemental oxygen provided and titrated to keep pulse oximetry above 92%. HFA provided. Patient received dexamethasone and remdesivir . Blood cultures were negative. DVT prophylaxis provided. Antitussive provided as needed. Antipyretic provided as needed. Patient initially to have creatinine1.5.renal paramrets and Electrolytes were closely monitored ; with IV hydration creatinine from 1.4 down to 1.1. Acute kidney injury resolved. Blood pressure was closely monitored, remained stable . Fevers resolved. As patient clinically improved, he was able to be weaned to room air. Prior to discharge pulse oximetry stable on room air. Patient clinically improved and was ready for discharge home. FINAL DIAGNOSES: COVID-19 pneumonia Hypoxemic respiratory failure Sepsis Acute kidney injury- resolved History of hypertension DISCHARGE MEDICATIONS: See Medication Reconciliation list. DISCHARGE INSTRUCTIONS: Patient was discharged home. Continue self-isolation for total of 10 days. I have been assigned to dictate discharge summary for this account. I was not involved in the patient's management. Gail العراقي NP Sep 17, 2020 11:35
--- NOTE | 2020-09-17 14:44 | Cardiology Report ---
APPROVED REPORT EXAM: Two-dimensional and M-mode echocardiogram with Doppler and color Doppler. INDICATION Shortness of breath M-Mode DIMENSIONS IVSd0.9 (0.7-1.1cm)Left Atrium (MM)3.3 (1.6-4.0cm) LVDd4.0 (3.5-5.6cm)Aortic Root3.1 (2.0-3.7cm) PWd0.9 (0.7-1.1cm)Aortic Cusp Exc.1.8 (1.5-2.0cm) IVSs1.6 cmEPSS0.4 (>1.0cm) LVDs2.4 (2.5-4.0cm) PWs1.4 cm <Conclusion> Normal left ventricular chamber size, systolic function and wall motion. Left ventricular ejection fraction estimated to be 65%. No evidence of left ventricular hypertrophy. Anterior Echo-free space, may be due to pericardial fat or effusion. All other cardiac chamber sizes are within normal limits. Focal aortic valve sclerosis with adequate cusp excursion. Thickened mitral valve leaflets with normal excursion. Mitral annulus and aortic root calcification. Pulmonic valve not well visualized. Normal tricuspid valve structure. IVC at normal size with slightly collapse. A color flow and spectral Doppler study was performed and revealed: Trace aortic regurgitation. Trace mitral regurgitation. Mitral inflow indicate normal left ventricular diastolic function. Trace tricuspid regurgitation. Tricuspid systolic velocities suggests peak right ventricular systolic pressure of 21mmHg. Trace pulmonic regurgitation present.
== END 2020-09-16 14:53 | disposition home or self-care (01) | DRG 177 ==
LOC: EMR 13:48 → 4E 15:06 → EDBEDREQ 21:09
DX: U07.1 COVID-19 (principal); K85.90 Acute pancreatitis without necrosis or infection, unspecified; A41.89 Other specified sepsis; J12.82 Pneumonia due to coronavirus disease 2019; J96.91 Respiratory failure, unspecified with hypoxia; N17.9 Acute kidney failure, unspecified
CPT/HCPCS: 36415; 71045; 80053; 81003; 82248; 82550; 82728; 82803; 83605; 83615; 83690; 83735; 83880; 84100; 84443; 84484; 85025; 85610; 85730; 86140; 86710; 87040; 87086; 93005; 93306; 96361; 96365; 96367; 96375; 99291; J3490; J7030; U0002